=== PATIENT | female | born 1975 | race Caucasian/White ===

== ENCOUNTER 2016-06-12 07:44 | Inpatient (IN) | payer BC ==
[~2016-06-12] VITALS: Ht 154.9 cm; Wt 85.0 kg
[~2016-06-12 07:44] MED LIST: ACYC-65 PO; ALBU1AER9 INH; HYDR-5688 PO; LISI-791 PO; MELO7.5T5 PO; TRAM-10 PO
[2016-06-12] MEDS ORDERED: ONDANSETRON INJ 2 MG/ML 2 ML VIAL IV STA (08:01)
[2016-06-12] MEDS ORDERED: HYDROmorphone INJ 1 MG/ML SYR IV STA ×2 (08:01→10:20)
[2016-06-12] MEDS ORDERED: METF-384 PO (08:15)
[2016-06-12] MEDS ORDERED: ALBU18002 INH (08:15)
[2016-06-12] MEDS ORDERED: BUPR100T8 PO (08:15)
[2016-06-12 08:25] LABS: BASO % 0.4 %; BASO ABS # 0.06 K/uL (0-0.2); COMPLETE YES; EOS % 1.7 %; HEMATOCRIT 41.6 % (37-47); IG% 0.3 %; LYMPH % 11.9 %; LYMPH ABS # 1.61 K/uL (1.2-3.4); MEAN CELL VOLUME 86.8 fL (80-100); MEAN CORPUSCULAR HEMOGLOBIN 30.3 pg (25-34); MEAN CORPUSCULAR HGB CONC 34.9 g/dl (32-36); MEAN PLATELET VOLUME 9.4 fL (7.4-10.4); MONO % 5.4 %; NEUT % 80.3 %; PLATELET COUNT 303 K/uL (130-400); RED BLOOD COUNT 4.79 M/uL (4.2-5.4); WHITE BLOOD COUNT 13.58 K/uL (4.8-10.8)
[2016-06-12] MEDS ORDERED: LORAZEPAM 1 MG TAB SL STA (08:26)
[2016-06-12 08:48] LABS: BUN/CREATININE RATIO 11.1 (10-20); CALCIUM 8.7 mg/dl (8.5-10.1); CREATININE 0.9 mg/dl (0.60-1.20)
--- NOTE | 2016-06-12 10:09 | DIAGNOSTIC IMAGING REPORT ---
LUMBAR SPINE MRI HISTORY: Right leg numbness. TECHNIQUE: Multiplanar multisequence MRI of the lumbar spine was performed without the use of contrast. COMPARISON: None. FINDINGS: For the purpose of the report the L5-S1 disc space will be located on axial image 23 of 29. [employer] images demonstrate focal thickening at the fundus of the endometrium measuring up to 1.3 cm. This is considered top normal in thickness for premenopausal female. Moderate disc space. L5-S1 with mild endplate degenerative changes. There is paravertebral edema surrounding the L5-S1 level. There is no endplate erosion or suspicious marrow signal abnormality to suggest an infectious process. The conus terminates at the L1 level. The remaining disc spaces are preserved. No fracture or subluxation. Mild to moderate facet degenerative changes at L4-L5 and L5-S1. L1-L2: Tiny broad-based posterior disc bulge without significant central canal or neural foraminal narrowing. L2-L3: No significant central canal or neural foraminal narrowing. L3-L4: No significant central canal or neural foraminal narrowing. L4-L5: Small broad-based posterior disc bulge with a right foraminal annular tear. Mild bilateral neural foraminal narrowing due to the facet hypertrophy and disc bulge. No significant central canal narrowing. L5-S1: Bilateral [id number] neural foraminal narrowing. There is a broad-based posterior disc bulge. There is a 12 x 7 mm focal central disc protrusion which results in mild central canal narrowing. This abuts the bilateral transiting S1 nerve root. In addition, best seen on axial image 26 and sagittal image 7 there is a 1.9 x 1.5 x 1.2 cm soft tissue abnormality posterior to the right S1 vertebral body. This demonstrates signal characteristics similar to the distal material. Therefore, this favors a large sequestered fragment from the L5-S1 level with inferior subligamentous migration. This compresses the transiting right S2 nerve root. IMPRESSION: 1. There is a focal central disc protrusion which results in mild central canal narrowing. This abuts the bilateral transiting S1 nerve root. In addition, there is a 1.9 x 1.5 x 1.2 cm soft tissue abnormality posterior to the right S1 vertebral body. This demonstrates signal characteristics similar to the disc material. Therefore, this favors a large sequestered fragment from the L5-S1 level with inferior subligamentous migration. This compresses the transiting right S2 nerve root. An epidural hematoma or abscess could also have a similar appearance but are considered less likely given the signal characteristics. 2. Mild paravertebral edema at the L5-S1 level. No acute fracture or subluxation. 3. Small broad-based posterior disc bulge with a right foraminal annular tear at L4-L5. There is mild bilateral neural foraminal narrowing at this level. 4. [employer] images demonstrate top normal focal thickness of the fundus of the endometrium. Follow-up pelvic ultrasound in 6-8 weeks is recommended to ensure resolution Electronically signed by: Nazario Vaughan M.D. 06/12/2016 10:08 AM Dictated Date/Time: 06/12/2016 9:55 AM
[2016-06-12 10:56] LABS: C-REACTIVE PROTEIN 1.37 mg/dl (0-0.29)
[2016-06-12] MEDS ORDERED: MoRPHine SULFATE 4 MG/ML 1 ML CARP\\VIAL IV STA (11:45)
[2016-06-12] MEDS ORDERED: PROMETHAZINE HCL INJ 12.5 MG in SODIUM CHLORIDE 0.9% 50ML 50 ML IV PRN (12:15)
[2016-06-12] MEDS ORDERED: NALOXONE HCL 0.4 MG/1 ML VIAL/CARP IV PRN (12:15)
[2016-06-12] MEDS ORDERED: ACETAMINOPHEN 325 MG TAB PO PRN (12:15)
[2016-06-12] MEDS ORDERED: LORAZEPAM INJ 1 MG in SYRINGE 0.5 ML IV PRN (12:15)
[2016-06-12 12:26] VITALS: O2SAT 93; BMI 35.4
--- NOTE | 2016-06-12 13:19 | HISTORY & PHYSICAL EXAMINATION ---
DATE OF ADMISSION: 06/12/2016 HISTORY OF PRESENT ILLNESS: This patient is a 40-year-old female, who presents with one week history of increasing back and right leg pain. She reports numbness that began a week ago down the right leg. She has a longstanding history of back pain with occasional sciatica, this has been managed nonoperatively at [facility]. She has had procedures here as well. Multiple epidural steroid injections. A week ago symptoms increased prompting presentation to the ER due to poor pain control at home. She reports no wayne incontinence. She reports no fevers, constitutional complaints, chills or night sweats. No history of IV drug abuse. She states that the right leg is numb. She has no left leg numbness. She also reports the right side of her buttocks has been increasingly numb. She has no wayne incontinence of stool or urine as mentioned. She states that she does not have any left-sided perineal or sacral numbness. These symptoms have developed slowly over the past week. She denies weakness in the ankles or legs. PAST MEDICAL HISTORY: Hypertension, asthma, prediabetic. 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 She is , accompanied by her . She is a smoker. REVIEW OF SYSTEMS: Negative for incontinence, fevers, constitutional complaints, chest pain, history of coronary artery disease or bleeding diathesis. PHYSICAL EXAMINATION: The patient is obviously uncomfortable lying supine in bed. She has a positive straight leg raise on the right, negative on the left. She has normal strength in mini motor testing in both lower extremities, somewhat limited more proximally due to discomfort with straining. She has diminished sensation to light touch and a S1 distribution on the right, normal on the left lower extremity. She has diminished DTRs, no clonus. She has regular rate and rhythm. Palpable distal pulses. She is breathing comfortably. Lungs are clear. She has an MRI that was reviewed, demonstrates a large central disc protrusion with extruded fragment tracking distal to the disc space causing significant compression of the S1 and S2 nerve roots on the right side more than the left. This was contiguous with the disc space. She did have lab work done in the ED, which revealed minimally elevated ESR of 22. White count was 13.5. C-reactive protein is also minimally elevated. She has no fevers. ASSESSMENT AND PLAN: The patient has a progressive radiculopathy with some perineal paresthesias in the right. She has no wayne incontinence, but given the progression of her symptoms for pain control and desire for definitive treatment we are going to admit her to the hospital. I did discuss the imaging with Dr. Vaughan, he felt it was consistent with the disc herniation and given the absence of any constitutional complaints the history of prior disc herniation and the MR characteristics he felt very unlikely to be anything other than a sequestered disc fragment. I was in agreement; her clinical picture also indicates this. The minimal elevation of her lab work may simply be a stress reaction, it is essentially borderline normal. My plan is to admit her, place her on steroids and take her to the OR for discectomy and probable fusion tomorrow given the longstanding history of back pain and the advanced disc degeneration of L5-S1. She had had this previously, discussed in the past and considered surgery for a fusion previously at [facility], but was trying to put it off. At this point, given the progression of symptoms, she would like to proceed.
[2016-06-12] MEDS ORDERED: IV FLUIDS COMPLETED PRN (13:30)
[2016-06-12 13:50] VITALS: BP 132/91; PULSE 75; TEMP 36.9; O2SAT 92
[2016-06-12] MEDS: SODIUM CHLORIDE 0.9% 1000ML 1,000 ML IV SCH (14:19)
[2016-06-12] MEDS: ONDANSETRON INJ 2 MG/ML 2 ML VIAL IV PRN (14:27)
[2016-06-12] MEDS: LACTATED RINGER'S 1000ML 1,000 ML IV SCH (14:27)
[2016-06-12] MEDS: LORAZEPAM 1 MG TAB PO PRN (14:27)
--- NOTE | 2016-06-12 14:57 | EMERGENCY ROOM VISIT NOTE ---
History Report prepared by Delia: Gage Huggins Under the Supervision of: Dr. Aleksandar Hagan D.O. First contact with patient: 07:55 Chief Complaint: BACK PAIN Stated Complaint: SEVERE BACK PAIN, RIGHT LEG NUMBNESS History of Present Illness The patient is a 40 year old female who presents to the Emergency Room with complaints of worsening lower back pain for the past week. The patient additionally states that she has been having numbness in her entire right leg and her groin is starting to become numb. The patient states that she is going to be scheduled to have back surgery. She denies having any recent injections or recent traumas. Patient has had previous back issues notes that this has been worsening. She's been trying to put off surgery as she does not want to pay for. She denies any weakness in her leg. No fevers. No recent infections. No IV drug use. No history of cancer. Pt denies headache, change in vision, fevers, chest pain, shortness of breath, nausea, vomiting, diarrhea, pain with urination, and melena. Source of History: patient Onset: a week ago Position: back (lower) Timing: worsening Associated Symptoms: + numbness, No urinary symptoms Review of Systems Pt denies headache, change in vision, fevers, chest pain, shortness of breath, nausea, vomiting, diarrhea, pain with urination, and melena. Past Medical & Surgical Medical Problems: (1) AC PYELONEPHRITIS NOS (2) ANXIETY STATE NOS (3) ASTHMA, UNSPECIFIED (4) DEPRESSIVE DISORDER NEC (5) ESOPHAGEAL REFLUX (6) HNP (herniated nucleus pulposus) (7) HYPERTENSION NOS (8) OPIOID DEPENDENCE-UNSPEC (9) OVARIAN CYST NEC/NOS (10) PNEUMONIA, ORGANISM NOS Family History VT (myocardial infarction) Social History Smoking Status: Current Every Day Smoker Alcohol Use: none Marital Status: Housing Status: lives with significant other Occupation Status: employed Current/Historical Medications Scheduled Acyclovir (Zovirax), 400 MG PO BID PRN Bupropion (Wellbutrin Sr), 100 MG PO BID Lisinopril (Zestril), 10 MG PO DAILY Meloxicam (Mobic), 7.5 MG PO HS Metformin Hcl (Glucophage), 1,000 MG PO BID Tramadol (Ultram), 50 MG PO Q6HR Scheduled PRN Albuterol Sulfate (Proair Respiclick), 2 PUFFS INH Q4H PRN for Shortness of Breath Allergies Coded Allergies: No Known Allergies (Verified , 06/12/16) Physical Exam Vital Signs Date Time Temp Pulse Resp B/P Pulse Ox O2 Delivery O2 Flow Rate FiO2 06/12/16 10:15 82 18 148/93 93 Room Air 06/12/16 07:48 36.6 83 20 128/77 94 Room Air Physical Exam GENERAL: Standing at the bedside holding lower back in moderate distress EYE EXAM: normal conjunctiva OROPHARYNX: no exudate, no erythema, lips, buccal mucosa, and tongue normal and mucous membranes are moist NECK: supple, no nuchal rigidity, no adenopathy, non-tender LUNGS: Clear to auscultation. Normal chest wall mechanics HEART: no murmurs, S1 normal and S2 normal ABDOMEN: abdomen soft, non-tender, normo-active bowel sounds, no masses, no rebound or guarding. BACK: Acute reproducible tenderness over the right SI joint tracking through her gluteus SKIN: no rashes and no bruising UPPER EXTREMITIES: upper extremities are grossly normal. LOWER EXTREMITIES: Flexion and extension in hip, knee, ankles EHL 5/5 bilateral. Gross sensation intact. Able to walk on heels and toes. Patellar and Achilles reflex 2/4 NEURO EXAM: Normal sensorium Medical Decision & Procedures ER Provider Diagnostic Interpretation: MRI results have been interpreted by the radiologist and reviewed by me. LUMBAR SPINE MRI HISTORY: Right leg numbness. TECHNIQUE: Multiplanar multisequence MRI of the lumbar spine was performed without the use of contrast. COMPARISON: None. FINDINGS: For the purpose of the report the L5-S1 disc space will be located on axial image . [employer] images demonstrate focal thickening at the fundus of the endometrium measuring up to 1.3 cm. This is considered top normal in thickness for premenopausal female. Moderate disc space. L5-S1 with mild endplate degenerative changes. There is paravertebral edema surrounding the L5-S1 level. There is no endplate erosion or suspicious marrow signal abnormality to suggest an infectious process. The conus terminates at the L1 level. The remaining disc spaces are preserved. No fracture or subluxation. Mild to moderate facet degenerative changes at L4-L5 and L5-S1. L1-L2: Tiny broad-based posterior disc bulge without significant central canal or neural foraminal narrowing. L2-L3: No significant central canal or neural foraminal narrowing. L3-L4: No significant central canal or neural foraminal narrowing. L4-L5: Small broad-based posterior disc bulge with a right foraminal annular tear. Mild bilateral neural foraminal narrowing due to the facet hypertrophy and disc bulge. No significant central canal narrowing. L5-S1: Bilateral [id number] neural foraminal narrowing. There is a broad-based posterior disc bulge. There is a 12 x 7 mm focal central disc protrusion which results in mild central canal narrowing. This abuts the bilateral transiting S1 nerve root. In addition, best seen on axial image 26 and sagittal image 7 there is a 1.9 x 1.5 x 1.2 cm soft tissue abnormality posterior to the right S1 vertebral body. This demonstrates signal characteristics similar to the distal material. Therefore, this favors a large sequestered fragment from the L5-S1 level with inferior subligamentous migration. This compresses the transiting right S2 nerve root. IMPRESSION: 1. There is a focal central disc protrusion which results in mild central canal narrowing. This abuts the bilateral transiting S1 nerve root. In addition, there is a 1.9 x 1.5 x 1.2 cm soft tissue abnormality posterior to the right S1 vertebral body. This demonstrates signal characteristics similar to the disc material. Therefore, this favors a large sequestered fragment from the L5-S1 level with inferior subligamentous migration. This compresses the transiting right S2 nerve root. An epidural hematoma or abscess could also have a similar appearance but are considered less likely given the signal characteristics. 2. Mild paravertebral edema at the L5-S1 level. No acute fracture or subluxation. 3. Small broad-based posterior disc bulge with a right foraminal annular tear at L4-L5. There is mild bilateral neural foraminal narrowing at this level. 4. [employer] images demonstrate top normal focal thickness of the fundus of the endometrium. Follow-up pelvic ultrasound in 6-8 weeks is recommended to ensure resolution Electronically signed by: Nazario Vaughan M.D. 06/12/2016 10:08 AM Dictated Date/Time: 06/12/2016 9:55 AM Laboratory Results 06/12/16 08:18 Red Blood Count 4.79, Mean Corpuscular Volume 86.8, Mean Corpuscular Hemoglobin 30.3, Mean Corpuscular Hemoglobin Concent 34.9, Mean Platelet Volume 9.4, Neutrophils (%) (Auto) 80.3, Lymphocytes (%) (Auto) 11.9, Monocytes (%) (Auto) 5.4, Eosinophils (%) (Auto) 1.7, Basophils (%) (Auto) 0.4, Neutrophils # (Auto) 10.90, Lymphocytes # (Auto) 1.61, Monocytes # (Auto) 0.74, Eosinophils # (Auto) 0.23, Basophils # (Auto) 0.06 06/12/16 08:18 Test 06/12/16 08:18 White Blood Count 13.58 K/uL (4.8-10.8) Red Blood Count 4.79 M/uL (4.2-5.4) Hemoglobin 14.5 g/dL (12.0-16.0) Hematocrit 41.6 % (37-47) Mean Corpuscular Volume 86.8 fL (80-100) Mean Corpuscular Hemoglobin 30.3 pg (25-34) Mean Corpuscular Hemoglobin Concent 34.9 g/dl (32-36) Platelet Count 303 K/uL (130-400) Mean Platelet Volume 9.4 fL (7.4-10.4) Neutrophils (%) (Auto) 80.3 % Lymphocytes (%) (Auto) 11.9 % Monocytes (%) (Auto) 5.4 % Eosinophils (%) (Auto) 1.7 % Basophils (%) (Auto) 0.4 % Neutrophils # (Auto) 10.90 K/uL (1.4-6.5) Lymphocytes # (Auto) 1.61 K/uL (1.2-3.4) Monocytes # (Auto) 0.74 K/uL (0.11-0.59) Eosinophils # (Auto) 0.23 K/uL (0-0.5) Basophils # (Auto) 0.06 K/uL (0-0.2) RDW Standard Deviation 47.2 fL (36.4-46.3) RDW Coefficient of Variation 14.8 % (11.5-14.5) Immature Granulocyte % (Auto) 0.3 % Immature Granulocyte # (Auto) 0.04 K/uL (0.00-0.02) Erythrocyte Sedimentation Rate 22 mm/hr (0-21) Anion Gap 9.0 mmol/L (3-11) Est Creatinine Clear Calc Drug Dose 81.4 ml/min Estimated GFR () 92.0 Estimated GFR (Non- 79.4 BUN/Creatinine Ratio 11.1 (10-20) Calcium Level 8.7 mg/dl (8.5-10.1) C-Reactive Protein 1.37 mg/dl (0-0.29) Laboratory results per my review. Medications Administered Medications (Trade) Dose Ordered Sig/Bam Route Start Time Stop Time Status Last Admin Dose Admin Hydromorphone HCl (Dilaudid Inj) 1 mg NOW STAT IV 06/12/16 08:01 06/12/16 08:04 DC 06/12/16 08:20 1 MG Ondansetron HCl (Zofran Inj) 4 mg NOW STAT IV 06/12/16 08:01 06/12/16 08:04 DC 06/12/16 08:20 4 MG Hydromorphone HCl (Dilaudid Inj) 1 mg NOW STAT IV 06/12/16 10:20 06/12/16 10:21 DC 06/12/16 10:29 1 MG Morphine Sulfate 4 mg 4 mg NOW STAT IV 06/12/16 11:45 06/12/16 11:46 DC 06/12/16 12:08 4 MG Lactated Ringer's (Lr 1000ml) 1,000 ml @ 75 mls/hr [id number] IV 06/12/16 12:09 07/12/16 12:08 06/12/16 14:27 75 MLS/HR ED Course ED COURSE: Vital signs were reviewed and showed normal vitals The patients medical record was reviewed The above diagnostic studies were performed and reviewed. ED treatments and interventions as stated above. 0755: The patient was evaluated in room B2. A complete history and physical examination was performed. 0801: Zofran Inj 4mg IV, Dilaudid Inj 1mg IV 0826: Ativan Tav 1mg SL 1020: Dilaudid Inj 1mg IV 1105: I discussed the patient's case with Dr. Lawson, and he says that he is going to review and discuss the images 1118: I discussed the patient's case with Dr. Lawson. He is going to evaluate the patient for further treatment. 1145: Morphine Sulfate 2mg IV 1150: Upon reevaluation, the patient is resting.I discussed my findings with the patient and she understands and agrees with the treatment plan. Based on the patients age, coexisting illnesses, exam and lab findings the decision to treat as an inpatient was made. The patient remained stable while under my care. The patient will be evaluated for further management. Medical Decision Differential diagnoses includes but is not limited to lumbar radiculopathy, muscle strain, facture, cauda equina, mass, and disc herniation. Patient is a 40-year-old female who presents the ER for severe lower back pain with numbness radiating down her right leg. She has had this before but notes that this is worse. She is paresthesias going into her groin. No fevers. No IV drug use. No history cancer. No recent trauma. On exam flexion extension in hip knee ankle and EHL is intact. Gross sensation is diminished on the right. Patellar and Achilles reflexes are 2 out of 4. Patient was given 3 doses of IV the lawn it. MRI was obtained which showed a large disc herniation. There was a question of whether she had a epidural abscess. Labs were previously obtained and showed a leukocytosis of 13,000. Her sed and CRP were normal. Vitals were stable. No fever. Patient has no risk for this. I rediscussed this with with his spine and she is evaluated at bedside. She initially declined admission but eventually was convinced. She will likely go to the OR tomorrow for her disc herniation as per orthopedics this is extremely unlikely that there is any abscess present but rather this is disc fragments. Consults Time Called: 1102 Consulting Physician: Dr. Lawson Returned Call: [phone] I discussed the patient's case with Dr. Lawson, and he says that he is going to discuss the images Additional Consults: Time Called: 1116 Consulted Physician: Dr. Lawson Returned Call: [phone] Additional Comments: I discussed the patient's case with Dr. Lawson. He is going to evaluate the patient for further treatment. Impression Primary Impression: Lumbar disc herniation Additional Impression: Paresthesia Scribe Attestation The scribe's documentation has been prepared under my direction and personally reviewed by me in its entirety. I confirm that the note above accurately reflects all work, treatment, procedures, and medical decision making performed by me. Departure Information Dispostion Being Evaluated By Hospitalist Referrals Oni Gillette III, M.D. (PCP) Patient Instructions My [facility] Problem Qualifiers
[2016-06-12 14:59] VITALS: BP 142/92; PULSE 76; TEMP 36.8; O2SAT 93
[2016-06-12] MEDS: DEXAMETHASONE INJ 8 MG in SYRINGE 0 ML IV SCH ×2 (15:11→21:55)
[2016-06-12] MEDS ORDERED: GLUCOSE 40% GEL 15 GM TUBE PO PRN (15:15)
[2016-06-12] MEDS ORDERED: DEXTROSE 50% 50 ML SYR IV PRN (15:15)
[2016-06-12] MEDS ORDERED: GLUCOSE 10 TABS/TUBE PO PRN (15:15)
[2016-06-12] MEDS ORDERED: GLUCAGON FOR INJ 1 MG VIAL SQ PRN (15:15)
[2016-06-12] MEDS ORDERED: ALBUTEROL 0.5% NEB SOLN 2.5 MG/0.5 ML VIAL INH PRN (15:15)
[2016-06-12] MEDS ORDERED: HydrALAZINE HCL 20 MG/ML VIAL IV. PRN (15:30)
--- NOTE | 2016-06-12 15:55 | Medical Consult ---
Consultation Date of Consultation: Jun 12, 2016. Attending Physician: Oni Gillette III, M.D. Reason for Consultation: Pre-operative evaluation and medical management History of Present Illness 40 yo female with history of HTN, asthma and borderline DM, presented to the ED with severe lower back pain and right leg pain and numbness. MRI lumbar spine revealed disc herniation at the L5-S1 level. She has been dealing with lower back pain for some time, has followed with [facility] [address] spine surgeons and she has had numerous steroid injections. Surgery was recommended but she wanted to wait. Now with severe back and leg pain she would like to have surgery, she was admitted by Dr. Lawson and he plans to take to the OR tomorrow after pain control and steroids started today. Currently she is resting in bed with moderate pain, waiting for Morphine IV. She reports that her medical issues are stable and she does follow regularly with her PCP. She carries a diagnosis of HTN and is prescribed lisinopril 10mg daily but she admits that she does not take the medication. She also has a diagnosis of asthma but only uses ProAir rescue inhaler as needed, no maintenance medications. Lastly, she has been told that she has borderline diabetes type II. She was treated with Metformin 500mg twice a day and was then increased to 1000mg twice a day. She cannot recall if she has been told a recent HbA1c level, just reports that she used to have elevated fasting blood sugar but the Metformin helped correct the issue. She insists that she does not have diabetes and her main concern is that she is ordered a diabetic diet and she wants a regular diet. She has had surgery before (ankle and wisdom teeth) and never had issues with anesthesia. She confirms that she has no known history of SC, CVA, CKD, arrhythmia or valve disease. Other than her back pain, she has no medical complaints. 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) Allergies Coded Allergies: No Known Allergies (Verified , 06/12/16) Home Medications Acyclovir 400mg BID PRN ProAir 2 puffs inhaled q4H PRN Wellbutrin 100mg BID Lisinopril 10mg daily (does not take) Mobic 7.5mg qHS Metformin 1000mg BID Ultram 50mg q6 PRN Current Inpatient Medications Current Inpatient Medications Medications (Trade) Dose Ordered Sig/Bam Route Start Time Stop Time Status Last Admin Dose Admin Bupropion HCl (Wellbutrin-Sr Tab) 100 mg BID PO 06/12/16 21:00 07/12/16 20:59 Lisinopril 10 mg 10 mg DAILY PO 06/13/16 09:00 07/13/16 08:59 Lactated Ringer's (Lr 1000ml) 1,000 ml @ 75 mls/hr [id number] IV 06/12/16 12:09 07/12/16 12:08 06/12/16 14:27 75 MLS/HR Acetaminophen (Tylenol Tab) 650 mg Q6H PRN PO 06/12/16 12:15 07/12/16 12:14 Docusate Sodium 100 mg 100 mg BID PO 06/12/16 21:00 07/12/16 20:59 Dexamethasone Sodium Phosphate 8 mg/Syringe 2 ml @ 1 mls/min Q8 IV 06/12/16 15:00 06/13/16 06:01 06/12/16 15:11 1 MLS/MIN Promethazine HCl/ Sodium Chloride (Phenergan Inj/ Nss 50ml) 50.5 ml @ 202 mls/hr Q6H PRN IV 06/12/16 12:15 07/12/16 12:14 Ondansetron HCl (Zofran Inj) 4 mg Q6H PRN IV 06/12/16 12:15 07/12/16 12:14 06/12/16 14:27 4 MG Lorazepam 1 mg 1 mg Q6H PRN PO 06/12/16 12:15 07/12/16 12:14 06/12/16 14:27 1 MG Lorazepam/Syringe (Ativan Inj/ Syringe) 1 ml @ 1 mls/min Q6H PRN IV 06/12/16 12:15 07/12/16 12:14 Oxycodone/ Acetaminophen (Percocet 5-325mg Tab) Moderate to Severe lobito... Q4H PRN PO 06/12/16 12:15 06/26/16 12:14 Naloxone HCl (Narcan Inj) 0.1 mg Q5M PRN IV 06/12/16 12:15 07/12/16 12:14 Morphine Sulfate 50 mg 50 mg PRN PRN IV 06/12/16 12:15 06/26/16 12:14 Sodium Chloride (Nss 1000ml) 1,000 ml @ 15 mls/hr Q24H IV 06/12/16 12:09 07/12/16 12:08 Miscellaneous 1 ea 1 ea PRN PRN N/A 06/12/16 13:30 06/12/17 13:29 Cefazolin Sodium (Ancef 2000mg/60 ml D5W) 60 ml @ 100 mls/hr PREOP IV 06/13/16 06:00 06/13/16 18:00 Insulin Aspart (novoLOG ASPART) SLIDING SCALE G... ACHS SC 06/12/16 17:15 07/12/16 17:14 Insulin Glargine (Lantus Solostar Pen) 15 unit QPM SC 06/12/16 21:00 07/12/16 20:59 Glucose (Glucose 40% Gel) 15-30 GRAMS 15 GRAMS... UD PRN PO 06/12/16 15:15 07/12/16 15:14 Glucose (Glucose Chew Tab) 4-8 Tablets 4 Tabl... UD PRN PO 06/12/16 15:15 07/12/16 15:14 Dextrose (Dextrose 50% 50ML Syringe) 25-50ML OF 50% DW IV FOR... UD PRN IV 06/12/16 15:15 07/12/16 15:14 Glucagon (Glucagon Inj) 1 mg UD PRN SQ 06/12/16 15:15 07/12/16 15:14 Albuterol Sulfate (Ventolin 0.5% 2.5MG/0.5ML Neb) 2.5 mg Q6R PRN INH 06/12/16 15:15 07/12/16 15:14 Review of Systems Constitutional: No chills, No fatigue, No fever, No problem reported, No sweats , No weakness, No weight loss Eyes: No diplopia, No discharge, No eye pain, No problem reported, No redness, No worsening of vision ENT: No dental problems, No hearing loss, No nasal symptoms, No problem reported, No sore throat, No tinnitus, No trouble swallowing, No unusual epistaxis Respiratory: No cough, No dyspnea at rest, No dyspnea on exertion, No hemoptysis, No problem reported, No shortness of breath, No sputum, No wheezing Cardiovascular: No PND, No chest pain, No claudication, No edema, No orthopnea , No palpitations, No problem reported Abdomen: No GI bleeding, No constipation, No diarrhea, No nausea, No pain, No problem reported, No vomiting Musculoskeletal: + joint pain (low back and right leg, numbness), No calf pain , No muscle pain, No problem reported, No swelling Genitourinary - Female: No dysuria, No hematuria, No urinary frequency, No urinary incontinence, No urinary retention, No urinary urgency Neurologic: + numbness/tingling (right leg and right buttock), No balance problems, No memory loss, No paralysis, No problem reported, No vertigo, No weakness Psychiatric: No anhedonism, No anxiety, No depression symptoms, No insomnia, No problem reported, No substance abuse Endocrine: No excessive thirst, No excessive urination, No fatigue, No problem reported Hematologic / Lymphatic: No abnormal bleeding/bruising, No clotting problems, No night sweats, No problem reported, No swollen lymph nodes Integumentary: No bleeding, No color change, No itch, No new/changing skin lesions, No problem reported, No rash Allergic / Immunologic: No environmental allergies, No food allergies, No frequent infections, No hives, No pet sensitivities, No poor healing, No problem reported, No prolonged convalescence, No seasonal allergies Physical Exam Date Time Temp Pulse Resp B/P Pulse Ox O2 Delivery O2 Flow Rate FiO2 06/12/16 14:59 36.8 76 18 142/92 93 Room Air 06/12/16 13:50 36.9 75 18 132/91 92 Room Air 06/12/16 13:39 36.6 83 18 124/97 93 06/12/16 13:32 83 18 124/97 93 06/12/16 12:37 75 18 134/84 98 Room Air 06/12/16 12:26 93 Room Air 06/12/16 10:15 82 18 148/93 93 Room Air 06/12/16 07:48 36.6 83 20 128/77 94 Room Air General Appearance: WD/WN, no apparent distress Head: normocephalic, atraumatic Eyes: normal inspection, EOMI, sclerae normal ENT: normal ENT inspection, hearing grossly normal, pharynx normal Neck: supple, no adenopathy, no JVD, trachea midline Respiratory/Chest: chest non-tender, lungs clear, normal breath sounds, no respiratory distress, no accessory muscle use Cardiovascular: regular rate, rhythm, no edema, no gallop, no JVD, no murmur, normal peripheral pulses Abdomen/GI: normal bowel sounds, non tender, soft, no organomegaly Back: normal inspection, no CVA tenderness, no muscle spasm, + decreased range of motion (lumbar spine due to pain) Extremities/Musculoskelatal: normal inspection, no calf tenderness, normal capillary refill, no pedal edema, normal range of motion, non-tender, pelvis stable Neurologic/Psych: 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 There is a focal central disc protrusion which results in mild central canal narrowing. This abuts the bilateral transiting S1 nerve root. In addition, there is a 1.9 x 1.5 x 1.2 cm soft tissue abnormality posterior to the right S1 vertebral body. This demonstrates signal characteristics similar to the disc material. Therefore, this favors a large sequestered fragment from the L5-S1 level with inferior subligamentous migration. This compresses the transiting right S2 nerve root. An epidural hematoma or abscess could also have a similar appearance but are considered less likely given the signal characteristics. 2. Mild paravertebral edema at the L5-S1 level. No acute fracture or subluxation. 3. Small broad-based posterior disc bulge with a right foraminal annular tear at L4-L5. There is mild bilateral neural foraminal narrowing at this level. 4. Drug Enforcement Administration Agent images demonstrate top normal focal thickness of the fundus of the endometrium. Follow-up pelvic ultrasound in 6-8 weeks is recommended to ensure resolution Last 24 Hours Test 06/12/16 08:18 White Blood Count 13.58 K/uL Red Blood Count 4.79 M/uL Hemoglobin 14.5 g/dL Hematocrit 41.6 % Mean Corpuscular Volume 86.8 fL Mean Corpuscular Hemoglobin 30.3 pg Mean Corpuscular Hemoglobin Concent 34.9 g/dl Platelet Count 303 K/uL Mean Platelet Volume 9.4 fL Neutrophils (%) (Auto) 80.3 % Lymphocytes (%) (Auto) 11.9 % Monocytes (%) (Auto) 5.4 % Eosinophils (%) (Auto) 1.7 % Basophils (%) (Auto) 0.4 % Neutrophils # (Auto) 10.90 K/uL Lymphocytes # (Auto) 1.61 K/uL Monocytes # (Auto) 0.74 K/uL Eosinophils # (Auto) 0.23 K/uL Basophils # (Auto) 0.06 K/uL RDW Standard Deviation 47.2 fL RDW Coefficient of Variation 14.8 % Immature Granulocyte % (Auto) 0.3 % Immature Granulocyte # (Auto) 0.04 K/uL Erythrocyte Sedimentation Rate 22 mm/hr Sodium Level 136 mmol/L Potassium Level 4.0 mmol/L Chloride Level 103 mmol/L Carbon Dioxide Level 24 mmol/L Anion Gap 9.0 mmol/L Blood Urea Nitrogen 10 mg/dl Creatinine 0.90 mg/dl Est Creatinine Clear Calc Drug Dose 81.4 ml/min Estimated GFR () 92.0 Estimated GFR (Non- 79.4 BUN/Creatinine Ratio 11.1 Random Glucose 122 mg/dl Calcium Level 8.7 mg/dl C-Reactive Protein 1.37 mg/dl Assessment & Plan 40 yo female with acute disc herniation at L5-S1 level causing radiculopathy, numbness in right leg, admitted by orthopedic surgery - Lumbar disc herniation, for surgical repair tomorrow: medically optimized, no active medical issues at this time no history of CAD, CVA, CKD, arrhythmias or valve disease, no issues with anesthesia in the past chest x-ray and EKG ordered, will f/u on results, lab work is normal with exception of leukocytosis which is likely stress induced - Borderline DM (according to patient) but may in fact have DM type II: will check HbA1c in the morning to determine her true diagnosis at this time hold Metformin while hospitalized, utilize Novolog coverage will use Lantus 15 units qPM because of Decadron 8mg q8 starting at 1500 true dose of Lantus based on steroid use and her weight would be 20 units BID but patient is insulin naive and will be NPO after midnight - Hypertension: BP is elevated currently with systolic in 140's, patient admits that she does not use Lisinopril at home monitor BP while here, use Hydralazine if > 170/110 - Asthma: lungs clear, no wheezing, Albuterol nebulizers PRN - Depression: continue Wellbutrin - DVT prophylaxis: per orthopedics Additional Copies To Oni Gillette III, M.D.
[2016-06-12] MEDS: MoRPHine SULFATE 1 MG/ML 50 ML PCA CASS IV PRN ×2 (15:58→23:07)
--- NOTE | 2016-06-12 17:13 | DIAGNOSTIC IMAGING REPORT ---
CHEST 2 VIEWS ROUTINE CLINICAL HISTORY: preop preoperative evaluation COMPARISON STUDY: 05/01/2012 FINDINGS: The bones soft tissues and hemidiaphragms are normal. The cardiomediastinal silhouette is normal. The lungs are clear. The pulmonary vasculature is normal. IMPRESSION: Negative chest. Electronically signed by: Joselo Nettles M.D. 06/12/2016 5:11 PM Dictated Date/Time: 06/12/2016 5:11 PM
[2016-06-12] MEDS: INSULIN ASPART 100 UNITS/ML 3 ML PEN SC SCH ×2 (18:48→21:54)
[2016-06-12] MEDS ORDERED: INSULIN GLARGINE SOLOSTAR 100 UNITS/ML 3 ML PEN SC SCH (21:00)
[2016-06-12] MEDS: BuPROPion SR 100 MG TABCR PO SCH (21:55)
[2016-06-12] MEDS: DOCUSATE SODIUM 100 MG CAP PO SCH (21:55)
[2016-06-12] MEDS ORDERED: NURSING DECISION MEDICATION ORDER SCH (23:15)
[2016-06-12 23:28] VITALS: BP 126/83; PULSE 86; TEMP 37; O2SAT 90
[2016-06-13] VITALS (14 sets, daily range): BP systolic 96–148; BP diastolic 61–82; PULSE 73–83; TEMP 36.7–37.2; O2SAT 84–98; Ht 154.9 cm; Wt 85.0 kg
[2016-06-13] MEDS: LACTATED RINGER'S 1000ML 1,000 ML IV SCH ×2 (00:08→15:45)
[2016-06-13] MEDS: ONDANSETRON INJ 2 MG/ML 2 ML VIAL IV PRN (00:08)
[2016-06-13] MEDS: INSULIN ASPART 100 UNITS/ML 3 ML PEN SC SCH ×5 (05:57→21:00)
[2016-06-13] MEDS: DEXAMETHASONE INJ 8 MG in SYRINGE 0 ML IV SCH (05:57)
[2016-06-13] MEDS ORDERED: CEFAZOLIN 2000 MG/60 ML D5W IV SCH (06:00)
[2016-06-13] MEDS ORDERED: CEFAZOLIN IV 2,000 MG in DEXTROSE 5% 50ML 50 ML IV SCH (06:00)
[2016-06-13] MEDS: MoRPHine SULFATE 1 MG/ML 50 ML PCA CASS IV PRN ×4 (07:05→22:51)
[2016-06-13] MEDS: BuPROPion SR 100 MG TABCR PO SCH ×2 (07:37→20:44)
[2016-06-13] MEDS: LISINOPRIL 10 MG TAB PO SCH (07:37)
[2016-06-13] MEDS: DOCUSATE SODIUM 100 MG CAP PO SCH ×2 (07:37→20:45)
--- NOTE | 2016-06-13 07:50 | Progress Note ---
Progress Note [facility] hospitalist service call me that pt's pcp is [place] gaitan, so , Dr. Neeraj Cunningham will take over to see the patient as consult to day
[2016-06-13 08:58] LABS: PREG INTERNAL NEGATIVE QC NEG CLEAR BACKGROUND; PREG INTERNAL POSITIVE QC POS CONTROL LINE
[2016-06-13 09:13] LABS: ESTIMATED AVERAGE GLUCOSE 105 mg/dl; HA1C FLAG Normal (Normal)
[2016-06-13] MEDS ORDERED: FENTANYL CITRATE INJ 50 MCG/1 ML 2 ML VIAL ONE ×2 (10:31)
[2016-06-13] MEDS ORDERED: MIDAZOLAM HCL 1 MG/ML 2ML VIAL ONE (10:31)
--- NOTE | 2016-06-13 10:32 | Progress Note ---
Medicine Progress Note Date & Time of Visit: Jun 13, 2016 at 10:21. Subjective Patient seen and examined. Anxious about having surgery today. Denies chest pain or SOB. Objective Last 8 Hrs Date Time Temp Pulse Resp B/P Pulse Ox O2 Delivery O2 Flow Rate FiO2 06/13/16 07:30 Nasal Cannula 3.0 06/13/16 07:28 36.8 80 18 148/82 93 3.0 06/13/16 03:55 36.9 82 14 124/77 94 Room Air Physical Exam: General-awake; alert; NAD Eyes-EOMI; no scleral icterus Neck-no stridor; trachea midline Lungs-CTA bilaterally; no wheezes/crackles Heart-RRR; no m/r/g Abdomen-soft; NTND; nBS Extremities-no c/c/e; no deformity Neuro-no gross focal deficits Laboratory Results: Last 24 Hours Test 06/12/16 17:39 06/12/16 20:38 06/12/16 23:34 06/13/16 00:00 Bedside Glucose 174 mg/dl 116 mg/dl 134 mg/dl Urine Test NEG Test 06/13/16 05:43 06/13/16 06:40 Bedside Glucose 119 mg/dl Estimated Average Glucose 105 mg/dl Hemoglobin A1c 5.3 % Assessment & Plan 40 yo female with acute disc herniation at L5-S1 level causing radiculopathy, numbness in right leg, admitted by orthopedic surgery. Lumbar disc herniation - admitted to Orthopedics - plan for surgical intervention today - EKG with NSR and unchanged from previous and CXR unremarkable - no history of CAD, CVA, CKD, arrhythmias or valve disease, no issues with anesthesia in the past - no further work up required prior to proceeding with surgery - patient is low risk for intermediate risk procedure - pain control as per Ortho Will controlled type 2 DM - A1c 5.3 - hold metformin - SSI while inpatient Hypertension - continue lisinopril Mild intermittent Asthma - no active issues - continue albuterol PRN Depression - continue Wellbutrin DVT prophylaxis: per orthopedics Patient with one low oxygen saturation noted and was started on supplemental oxygen. Patient with gel nail cymro and so this likely was not an accurate reading. Patient asymptomatic and lung exam and CXR unremarkable. Do not suspect that patient is truly hypoxic. Current Inpatient Medications: Current Inpatient Medications Medications (Trade) Dose Ordered Sig/Bam Route Start Time Stop Time Status Last Admin Dose Admin Bupropion HCl (Wellbutrin-Sr Tab) 100 mg BID PO 06/12/16 21:00 07/12/16 20:59 06/13/16 07:37 100 MG Lisinopril 10 mg 10 mg DAILY PO 06/13/16 09:00 07/13/16 08:59 06/13/16 07:37 10 MG Lactated Ringer's (Lr 1000ml) 1,000 ml @ 75 mls/hr [id number] IV 06/12/16 12:09 07/12/16 12:08 06/13/16 00:08 75 MLS/HR Acetaminophen (Tylenol Tab) 650 mg Q6H PRN PO 06/12/16 12:15 07/12/16 12:14 Docusate Sodium 100 mg 100 mg BID PO 06/12/16 21:00 07/12/16 20:59 06/13/16 07:37 100 MG Promethazine HCl/ Sodium Chloride (Phenergan Inj/ Nss 50ml) 50.5 ml @ 202 mls/hr Q6H PRN IV 06/12/16 12:15 07/12/16 12:14 Ondansetron HCl (Zofran Inj) 4 mg Q6H PRN IV 06/12/16 12:15 07/12/16 12:14 06/13/16 00:08 4 MG Lorazepam 1 mg 1 mg Q6H PRN PO 06/12/16 12:15 07/12/16 12:14 06/12/16 14:27 1 MG Lorazepam/Syringe (Ativan Inj/ Syringe) 1 ml @ 1 mls/min Q6H PRN IV 06/12/16 12:15 07/12/16 12:14 Oxycodone/ Acetaminophen (Percocet 5-325mg Tab) Moderate to Severe lobito... Q4H PRN PO 06/12/16 12:15 06/26/16 12:14 Naloxone HCl (Narcan Inj) 0.1 mg Q5M PRN IV 06/12/16 12:15 07/12/16 12:14 Morphine Sulfate 50 mg 50 mg PRN PRN IV 06/12/16 12:15 06/26/16 12:14 06/13/16 07:05 50 MG Sodium Chloride (Nss 1000ml) 1,000 ml @ 15 mls/hr Q24H IV 06/12/16 12:09 07/12/16 12:08 Miscellaneous 1 ea 1 ea PRN PRN N/A 06/12/16 13:30 06/12/17 13:29 Cefazolin Sodium (Ancef 2000mg/60 ml D5W) 60 ml @ 100 mls/hr PREOP IV 06/13/16 06:00 06/13/16 18:00 Glucose (Glucose 40% Gel) 15-30 GRAMS 15 GRAMS... UD PRN PO 06/12/16 15:15 07/12/16 15:14 Glucose (Glucose Chew Tab) 4-8 Tablets 4 Tabl... UD PRN PO 06/12/16 15:15 07/12/16 15:14 Dextrose (Dextrose 50% 50ML Syringe) 25-50ML OF 50% DW IV FOR... UD PRN IV 06/12/16 15:15 07/12/16 15:14 Glucagon (Glucagon Inj) 1 mg UD PRN SQ 06/12/16 15:15 07/12/16 15:14 Albuterol Sulfate (Ventolin 0.5% 2.5MG/0.5ML Neb) 2.5 mg Q6R PRN INH 06/12/16 15:15 07/12/16 15:14 06/13/16 00:29 2.5 MG Hydralazine HCl (HydrALAZINE INJ) 10 mg Q6 PRN IV. 06/12/16 15:30 07/12/16 15:29 Insulin Aspart (novoLOG ASPART) SLIDING SCALE G... Q6 SC 06/13/16 00:00 07/13/16 00:00
[2016-06-13] MEDS ORDERED: ATROPINE SULFATE 0.1 MG/ML 5ML SYR IV PRN (10:45)
[2016-06-13] MEDS ORDERED: ONDANSETRON INJ 2 MG/ML 2 ML VIAL IV PRN ×2 (10:45→14:30)
[2016-06-13] MEDS ORDERED: EpHEDrine SULFATE INJ 50 MG/ML AMP IV PRN (10:45)
[2016-06-13] MEDS ORDERED: HYDROmorphone INJ 1 MG/ML SYR IV PRN (10:45)
[2016-06-13] MEDS ORDERED: SCOPOLAMINE 1.5 MG TDSY TD ONE (11:58)
--- NOTE | 2016-06-13 12:15 | History & Physical Bridge Note ---
H&P Re-Evaluation Bridge Note: I have examined the patient, reviewed the History & Physical and in the interval since the performance of the History & Physical I have noted the following changes of clinical significance: No changes noted
[2016-06-13] MEDS ORDERED: GLYCOPYRROLATE INJ 0.2 MG/ML VIAL ONE (12:48)
[2016-06-13] MEDS ORDERED: NEOSTIGMINE METHYLSULFATE 5 MG/5 ML SYR ONE (12:48)
[2016-06-13] MEDS ORDERED: LARYING-O-JET KIT (LTA) EXT ONE ×2 (12:48)
[2016-06-13] MEDS ORDERED: DEXAMETHASONE SOD INJ 4 MG/ML VIAL ONE (12:48)
[2016-06-13] MEDS ORDERED: PROPOFOL IV EMULSION 10 MG/ML 20 ML VIAL IV ONE (12:48)
[2016-06-13] MEDS ORDERED: ROCURONIUM BROMIDE 10 MG/ML 5 ML VIAL ONE (12:48)
[2016-06-13] MEDS ORDERED: ONDANSETRON INJ 2 MG/ML 2 ML VIAL ONE (12:48)
[2016-06-13] MEDS ORDERED: LIDOCAINE HCL 2% 2 ML VIAL (20MG/ML) ONE (12:48)
[2016-06-13] MEDS ORDERED: HYDROmorphone INJ 2 MG/ML SYR/VIAL ONE (12:50)
[2016-06-13] MEDS ORDERED: PHENYLEPHRINE 100MCG/ML 5ML SYR ONE (13:07)
[2016-06-13] MEDS ORDERED: THROMBIN 5000 UNITS KIT TOP ONE (13:17)
[2016-06-13] MEDS ORDERED: BACITRACIN 50000 UNIT VIAL IR ONE (13:17)
[2016-06-13] MEDS ORDERED: THROMBIN FOR SOLN 20000 UNIT KIT TOP ONE (13:17)
[2016-06-13] MEDS ORDERED: BUPIVACAINE/EPINEPHRINE 0.5% MPF 1:200,000 30 ML VIAL INJ ONE (13:17)
[2016-06-13] MEDS ORDERED: FLOSEAL HEMOSTATIC MATRIX 10ML TOP ONE (14:01)
--- NOTE | 2016-06-13 14:23 | [facility] Post Operative Brief Note ---
Immediate Operative Summary Operative Date Jun 13, 2016. Pre-Operative Diagnosis Advanced disc degeneration of L5-S1 Post-Operative Diagnosis Advanced disc degeneration of L5-S1 Procedure(s) Performed L5-S1 Discectomy Decompression Posterior Fusion, Interbody Fusion, Arteriocyte Surgeon Dr. Lawson Medical Sonographer Surgeon(s) 0 Estimated Blood Loss 170ML Findings dict Specimens none
[2016-06-13] MEDS ORDERED: LORAZEPAM 0.5 MG TAB PO PRN (14:30)
[2016-06-13] MEDS ORDERED: BISACODYL 10 MG SUPP PR PRN (14:30)
[2016-06-13] MEDS ORDERED: MAGNESIUM HYDROXIDE SUSP 30 ML UDC PO PRN (14:30)
[2016-06-13] MEDS ORDERED: ACETAMINOPHEN IV 100 ML IV PRN (14:30)
[2016-06-13] MEDS ORDERED: METOCLOPRAMIDE HCL INJ 5 MG/ML 2 ML VIAL IV PRN (14:30)
[2016-06-13] MEDS ORDERED: PROMETHAZINE HCL INJ 12.5 MG in SODIUM CHLORIDE 0.9% 50ML 50 ML IV PRN (14:30)
[2016-06-13] MEDS ORDERED: hydrOXYzine HCL 25 MG TAB PO PRN (14:30)
[2016-06-13] MEDS ORDERED: ALUMINUM/MAGNESIUM SUSP 30 ML UDC PO PRN (14:30)
[2016-06-13] MEDS ORDERED: SOD PHOSPHATE/SOD BIPHOSPHATE ENEMA 132 ML BTL PR PRN (14:30)
[2016-06-13] MEDS ORDERED: LORAZEPAM INJ 0.5 MG in SYRINGE 0 ML IV PRN (14:30)
--- NOTE | 2016-06-13 14:35 | DIAGNOSTIC IMAGING REPORT ---
Lumbar spine LUMBAR SPINE 2 OR 3 VIEW CLINICAL HISTORY: L5-S1 DECOMPRESSION laminectomy. Fusion. TECHNIQUE: Image intensifier COMPARISON STUDY: None FINDINGS: Findings consistent with posterior laminectomy and fusion L5-S1. Hardware is intact. Disc spacers present at the L5-S1 level. IMPRESSION: Anatomic alignment status post laminectomy and fusion L5-S1 level. Electronically signed by: Joselo Nettles M.D. 06/13/2016 2:34 PM Dictated Date/Time: 06/13/2016 2:33 PM
[2016-06-13] MEDS: FENTANYL CITRATE INJ 50 MCG/1 ML 2 ML VIAL IV PRN ×2 (14:40→14:46)
[2016-06-13] MEDS: SODIUM CHLORIDE 0.9% 1000ML 1,000 ML IV SCH ×2 (14:45→15:45)
[2016-06-13] MEDS ORDERED: FAMOTIDINE 20 MG TAB PO PRN (15:00)
--- NOTE | 2016-06-13 15:08 | Anesthesiology Progress Note ---
Anesthesia Post Op Note Date & Time Jun 13, 2016 at 15:08 Vital Signs Pain Intensity: 3 Vital Signs Past 12 Hours Date Time Temp Pulse Resp B/P Pulse Ox O2 Delivery O2 Flow Rate FiO2 06/13/16 14:50 78 12 128/91 93 Nasal Cannula 4 06/13/16 14:40 73 14 138/82 98 Mask 10 06/13/16 14:30 69 15 122/83 98 Mask 10 06/13/16 14:23 37.2 65 16 130/69 96 Mask 10 06/13/16 11:15 36.8 83 16 116/73 92 Nasal Cannula 3.0 06/13/16 07:30 Nasal Cannula 3.0 06/13/16 07:28 36.8 80 18 148/82 93 3.0 06/13/16 03:55 36.9 82 14 124/77 94 Room Air Notes Mental Status: alert / awake / arousable, participated in evaluation Pt Amnestic to Procedure: Yes Nausea / Vomiting: adequately controlled Pain: adequately controlled Airway Patency, RR, SpO2: stable & adequate BP & HR: stable & adequate Hydration State: stable & adequate Anesthetic Complications: no major complications apparent
[2016-06-13] MEDS ORDERED: NURSING VERBAL MED ORDER ONE (16:00)
[2016-06-13] MEDS: DOCUSATE SODIUM/SENNA 50/8.6MG TAB PO SCH (20:44)
[2016-06-13] MEDS: DEXAMETHASONE INJ 6 MG in SYRINGE 0 ML IV SCH (20:44)
[2016-06-13] MEDS: CEFAZOLIN IV 2,000 MG in DEXTROSE 5% 50ML 50 ML IV SCH (21:10)
[2016-06-13] MEDS ORDERED: NURSING DECISION MEDICATION ORDER SCH (23:15)
[2016-06-14 03:20] VITALS: BP 97/64; PULSE 69; TEMP 37.2; O2SAT 92
[2016-06-14] MEDS: DEXAMETHASONE INJ 6 MG in SYRINGE 0 ML IV SCH ×2 (03:21→11:31)
[2016-06-14] MEDS: CEFAZOLIN IV 2,000 MG in DEXTROSE 5% 50ML 50 ML IV SCH (03:21)
[2016-06-14] MEDS: SODIUM CHLORIDE 0.9% 1000ML 1,000 ML IV SCH (03:23)
[2016-06-14] MEDS ORDERED: NALOXONE HCL 0.4 MG/1 ML VIAL/CARP IV PRN (06:00)
[2016-06-14] MEDS ORDERED: DC PCA PRN (06:00)
[2016-06-14] MEDS: OXYCODONE HCL IR 5 MG TAB (IMMEDIATE RELEASE) PO PRN ×5 (06:04→23:20)
[2016-06-14 06:16] LABS: BASO % 0.1 %; BASO ABS # 0.01 K/uL (0-0.2); COMPLETE YES; EOS % 0.1 %; HEMATOCRIT 34.7 % (37-47); IG% 0.4 %; LYMPH % 7.8 %; LYMPH ABS # 1.16 K/uL (1.2-3.4); MEAN CELL VOLUME 87.4 fL (80-100); MEAN CORPUSCULAR HEMOGLOBIN 29.5 pg (25-34); MEAN CORPUSCULAR HGB CONC 33.7 g/dl (32-36); MEAN PLATELET VOLUME 9.5 fL (7.4-10.4); MONO % 6.5 %; NEUT % 85.1 %; PLATELET COUNT 251 K/uL (130-400); RED BLOOD COUNT 3.97 M/uL (4.2-5.4); WHITE BLOOD COUNT 14.88 K/uL (4.8-10.8)
[2016-06-14 06:46] LABS: BUN/CREATININE RATIO 18.4 (10-20); CREATININE 0.77 mg/dl (0.60-1.20); POTASSIUM 4.1 mmol/L (3.5-5.1)
[2016-06-14] MEDS ORDERED: NURSING VERBAL MED ORDER ONE (07:15)
[2016-06-14 07:18] VITALS: BP 109/72; PULSE 73; TEMP 36.9; O2SAT 93
[2016-06-14] MEDS ORDERED: OXYC-57 PO (07:33)
--- NOTE | 2016-06-14 07:34 | Discharge Instructions ---
Discharge Instructions Admission Reason for Admission: Hnp Herniated Nucleus Pulposus Discharge Discharge Diagnosis / Problem: Lumbar Disc Herniation Discharge Goals Goal(s): Decrease discomfort, Improve function, Increase independence Activity Recommendations Activity Limitations: as noted below Lifting Limitations: no more than 5 pounds Exercise/Sports Limitations: until after follow-up appointment May Resume Sexual Activity: after follow-up appointment Shower/Bathe: may shower/bathe in 3 days . Instructions / Follow-Up Instructions / Follow-Up ACTIVITY RECOMMENDATIONS: SELF CARE INSTRUCTIONS AFTER THORACIC/LUMBAR FUSIONS 1. You may walk to your tolerance. It is good exercise for your legs and back. Expect some back and intermittent leg aches and pains. 2. You may perform "counter-top" level activities (make a sandwich, kalia with a project, etc.). 3. No bending or lifting of more than 10 pounds or back twisting of any nature (roll like a log when turning in bed). 4. You may ride in a car for 20-30 minutes at a time. No driving until after your first visit with your doctor. 5. Frequent changes of position and restricting sitting to 30 minutes at a time will help limit the amount of back spasms and stiffness you may experience. 6. You may discontinue the use of ambulatory aids (cane, crutches, etc.) once your strength and confidence allow. 7. You may digital publishing specialist the shower and let water strike your incision when you arrive home at least once daily. Do not take a tub bath, sit in a hot tub or go into a swimming pool until after your first recheck in the office. SPECIAL CARE INSTRUCTIONS: VERY IMPORTANT TO READ AND REVIEW A. Your surgical incision has been closed with a cosmetic suture under the skin that will dissolve in about 6 weeks. In 14 days, you can use a pair of clean scissors and cut the suture that is left outside of the skin at the ends of your incision. 1. The small skin tapes can be removed 7 days after surgery if they have not fallen off by that point. 2. You may keep the wound open to air as much as possible to promote healing after post-op day number 5 unless told otherwise by your doctor. 3. If you think the wound looks like it is becoming infected (redness or worsening drainage) and/or you are experiencing fever, chill or worsening back pain and muscle spasms, contact the office so that we may evaluate you as soon as possible. B. Complications are uncommon, but please contact us if you have any signs or symptoms of: 1. wound infection (fever higher than 102.5 degrees F, redness, separation of wound, drainage, or increasing pain from the incision) 2. blood clots in legs (pain, swelling, redness and warmth in legs) 3. urinary tract infection (fever higher than 102.5 degrees F, burning upon urination or increased frequency of urination) 4. nerve problems (inability to walk on your toes or heels, numbness, loss of bowel or bladder control) 5. any other symptoms that concern you C. Please call the office at if you have any concerns or questions about your operation or recovery. D. No smoking! Smoking drastically decreases the chance of a solid fusion. E. Do not take any anti-inflammatory medications (Indocin, Advil, Motrin, Aspirin, Naprosyn, etc.) as these may inhibit the chance of a solid fusion. Tylenol is okay to take for pain. MANAGING PAIN AFTER SPINAL SURGERY 1. Narcotic medication is intended for short-term use and will be provided for surgical pain. Surgical pain usually lasts for a period of 4-6 weeks. Narcotic medication includes Percocet, Vicodin, Darvocet, Tylenol #3 or Lortab. 2. Longer-term pain is more appropriately treated with non-narcotic medication such as Tylenol ES. 3. Muscle spasm is not appropriately treated with narcotics. Muscle relaxers such as Soma, Flexeril or Skelaxin can be used along with Tylenol ES. 4. Remember that we all live with some "aches and pains". This is not unusual or uncommon after an injury or as we get older. a. Back pain is expected and may include muscle spasms for 4 to 6 weeks after surgery. The pain should gradually improve. If the pain worsens for no apparent reason, please contact the office. b. Intermittent leg pain may also be experienced and should not be concerned about unless it worsens for no apparent reason. If so, please contact the office. 5. We will provide appropriate medication within the normal guidelines of their prescribed use. We will also be very cautious and aware of potential abuse and extended duration of patients' medication needs. a. Pain medications are for your comfort and to assist with sleep and rest so that the tissue can heal. They are not provided in order to return to normal activity and should not be used through the day. To do so or worsening pain at night can result from ongoing tissue damage and development of tolerance to the prescribed medicine. 6. Please allow 2-3 days to process refills. Prescriptions will not be mailed but must be picked up at the office. FOLLOW UP VISIT: Keep your scheduled follow-up appointment. Any questions, please call the office at . Current Hospital Diet Patient's current hospital diet: Diabetes Type 2 Diet Discharge Diet Recommended Diet: Regular Diet Procedures Procedures Performed: L5-S1 Discectomy Decompression Posterior Fusion, Interbody Fusion, Arteriocyte Pending Studies Studies pending at discharge: no Laboratory Results Hemoglobin A1c Test 06/13/16 06:40 Range/Units Estimated Average Glucose 105 mg/dl Hemoglobin A1c 5.3 4.5-5.6 % Medical Emergencies . Who to Call and When: Medical Emergencies: If at any time you feel your situation is an emergency, please call 911 immediately. . Non-Emergent Contact Non-Emergency issues call your: Surgeon Call Non-Emergent contact if: temperature is above 101, your pain is not controlled, your pain is worsening, your pain is unusual for you, your pain is concerning you, wound has increased drainage, wound has increased redness, wound has increased pain, you have any medication questions . "Provider Documentation" section prepared by Fantasma Munoz. VTE Core Measure Inpt VTE Proph given/why not?: Jhonathan Alamo
--- NOTE | 2016-06-14 08:10 | Anesthesiology Progress Note ---
Anesthesia Post Op Note Date & Time Jun 14, 2016 at 08:09 Vital Signs Vital Signs Past 12 Hours Date Time Temp Pulse Resp B/P Pulse Ox O2 Delivery O2 Flow Rate FiO2 06/14/16 07:18 36.9 73 16 109/72 93 Room Air 06/14/16 03:20 37.2 69 16 97/64 92 Room Air 06/14/16 00:20 Room Air 06/13/16 22:54 37.2 77 16 96/61 93 Room Air Notes Mental Status: alert / awake / arousable, participated in evaluation Pt Amnestic to Procedure: Yes Nausea / Vomiting: adequately controlled Pain: adequately controlled Airway Patency, RR, SpO2: stable & adequate BP & HR: stable & adequate Hydration State: stable & adequate Anesthetic Complications: no major complications apparent
[2016-06-14] MEDS: BuPROPion SR 100 MG TABCR PO SCH ×2 (09:48→19:54)
[2016-06-14] MEDS: LISINOPRIL 10 MG TAB PO SCH (09:48)
[2016-06-14] MEDS: DOCUSATE SODIUM 100 MG CAP PO SCH ×2 (09:48→19:54)
[2016-06-14] MEDS: INSULIN ASPART 100 UNITS/ML 3 ML PEN SC SCH ×4 (09:51→21:00)
[2016-06-14] MEDS: KETOROLAC TROMETHAMINE 30 MG/ML VIAL IV PRN ×3 (10:17→22:01)
--- NOTE | 2016-06-14 10:59 | OPERATIVE REPORT ---
DATE OF OPERATION: 06/13/2016 PREOPERATIVE DIAGNOSES: 1. L5-S1 disk herniation and impending cauda equina syndrome. 2. L5-S1 disc degeneration. 3. Chronic low back pain. POSTOPERATIVE DIAGNOSIS: Same. PROCEDURES: 1. L5 laminectomy with right L5-S1 discectomy. 2. Nonsegmental pedicle screw instrumentation -- bilateral L5 and S1 with K2M Center pedicle screws. 3. Posterolateral fusion, L5-S1 -- bilateral with local bone, bone putty, bone marrow aspirate. 4. Right L5-S1 transforaminal lumbar interbody fusion with K2M titanium mesh preprinted cage, local bone, bone putty bone marrow aspirate. 5. Right iliac crest bone marrow aspiration stem cell concentration Arteriocyte system. SURGEON: Dr. Lawson. MANAGER MUTUAL FUND: OR staff. ANESTHESIA: General endotracheal anesthesia. COMPLICATIONS: None. ESTIMATED BLOOD LOSS: 170 mL. DESCRIPTION OF PROCEDURE: After identification of patient and operative level, she was brought to the OR where she underwent induction of general anesthesia. She was then positioned prone on Saurabh OR table. All bony prominences were well padded. Care was taken to avoid pressure on the periorbital area. Lumbosacral area was sterilely prepped and draped in usual fashion. Antibiotics were administered. Time-out was performed. Level was confirmed and skin incision was localized with lateral fluoroscopy and a spinal needle. I infiltrated the skin with 0.5% Marcaine with epinephrine, made skin incision from spinous process of L4 to the sacrum, performed routine posterior exposure out to the transverse process from L5 to the sacral ala. I placed Gelpi retractors, confirmed level with fluoroscopy and marked the operative level and performed an L5 laminectomy and takedown ligamentum flavum. I removed the medial facets with an osteotome and then exposed the dural tube widely and performed a wide discectomy of extruded fragments distal to the disc space and compressing the sacral nerve roots eccentric to the right. I removed all this loose disc material and palpated proximally and distally until no further free fragments were identified. I then did a complete discectomy through an annulotomy on the right side at L5-S1 and removed all disc material as well as cartilaginous endplates of the discs. I then placed pedicle screws bilaterally at L5 and S1 with K2M Center pedicle screws. I then prepared the disc space for cage insertion and filled the titanium mesh cage with bone putty, bone marrow aspirate, local bone. Bone marrow aspirate taken from the right iliac crest via separate stab incision with a Jamshidi needle concentrated with the Arteriocyte system applied to bone graft day care aide. Tamped the cage into position, had good stability and then lowered the Hira frame to restore lordosis, applied rods and end caps final tightening. I then irrigated with bacitracin solution and decorticated the transverse process of L5 and sacral ala bilaterally with a high speed bur. I then packed the lateral gutters with bone graft mixture as above at L5-S1 and then confirmed hemostasis and closed in layered fashion over JEANETTE drain. All sponge and needle counts were correct at the end of the case. I attest to the content of the Intraoperative Record and any orders documented therein. Any exceptio ns are noted below.
--- NOTE | 2016-06-14 11:39 | Orthopedic Progress Note ---
Orthopedic Progress Note Date of Service Jun 14, 2016. Subjective Post OP Day: 1 Reports: feeling well, pain controlled w PO medications, Denies: SOB, calf pain , chest pain, complaints, light headedness, nausea / vomiting Additional Notes: Doing well, improved from pre op state, no medical issues, pain controlled except for transition, stable. Objective calves soft nontender, N/V intact, capillary refill less than 2 sec., dressing C /D/I, A&O x3, toes mobile, hemovac drainage Date Time Temp Pulse Resp B/P Pulse Ox O2 Delivery O2 Flow Rate FiO2 06/14/16 08:41 Room Air 06/14/16 07:18 36.9 73 16 109/72 93 Room Air 06/14/16 03:20 37.2 69 16 97/64 92 Room Air 06/14/16 00:20 Room Air 06/13/16 22:54 37.2 77 16 96/61 93 Room Air 06/13/16 18:25 36.9 74 18 106/69 92 Room Air 06/13/16 17:25 36.7 73 18 107/65 94 Room Air 06/13/16 16:30 95 Room Air 2.0 06/13/16 16:25 36.7 81 18 105/70 92 Room Air 06/13/16 15:55 95 Nasal Cannula 2.0 06/13/16 15:54 36.8 73 20 119/75 96 Room Air 06/13/16 15:27 36.8 79 18 116/72 98 Nasal Cannula 4.0 06/13/16 15:25 36.8 79 20 116/72 95 Nasal Cannula 2.0 06/13/16 15:15 73 13 134/89 95 Nasal Cannula 4 06/13/16 15:00 36.8 78 12 113/80 97 Nasal Cannula 4 06/13/16 14:50 78 12 128/91 93 Nasal Cannula 4 06/13/16 14:40 73 14 138/82 98 Mask 10 06/13/16 14:30 69 15 122/83 98 Mask 10 06/13/16 14:23 37.2 65 16 130/69 96 Mask 10 Laboratory Results 24 Hours: Test 06/14/16 05:55 White Blood Count 14.88 K/uL Red Blood Count 3.97 M/uL Hemoglobin 11.7 g/dL Hematocrit 34.7 % Mean Corpuscular Volume 87.4 fL Mean Corpuscular Hemoglobin 29.5 pg Mean Corpuscular Hemoglobin Concent 33.7 g/dl Platelet Count 251 K/uL Mean Platelet Volume 9.5 fL Neutrophils (%) (Auto) 85.1 % Lymphocytes (%) (Auto) 7.8 % Monocytes (%) (Auto) 6.5 % Eosinophils (%) (Auto) 0.1 % Basophils (%) (Auto) 0.1 % Neutrophils # (Auto) 12.68 K/uL Lymphocytes # (Auto) 1.16 K/uL Monocytes # (Auto) 0.96 K/uL Eosinophils # (Auto) 0.01 K/uL Basophils # (Auto) 0.01 K/uL Assessment & Plan Assessment: s/p lumbar decomp/fusion Plan: Begin PT, add Toradol for pain, d/c coleman, continue drain, dvt prophylaxis, home tomorrow
[2016-06-14 15:15] VITALS: BP 103/68; PULSE 75; TEMP 36.8; O2SAT 92
[2016-06-14] MEDS: LORAZEPAM 1 MG TAB PO PRN (15:33)
[2016-06-14] MEDS: HYDROmorphone INJ 1 MG/ML SYR IV PRN ×2 (15:34→19:47)
--- NOTE | 2016-06-14 18:09 | Progress Note ---
Internal Med Progress Note Date of Service: Jun 14, 2016. Provider Documentation: SUBJECTIVE: Patient is seen and examined at bedside. She states having pain at the surgical site. Denies any chest pain, SOB, dizziness. OBJECTIVE: Vital Signs-as noted below Physical Exam: General Appearance:Moderately built and nourished, Obese Head: normocephalic, Atraumatic Eyes: normal inspection, EOMI, PERRLA Neck: supple, no JVD, Trachea midline Respiratory/Chest: Normal breath sounds, CTA Cardiovascular: S1, S2, NSR, No murmur Abdomen/GI:Soft, Non tender, Bowel sounds present Extremities/Musculoskelatal:normal inspection, no pedal edema Neurologic/Psych:AAOX3, grossly no focal neurological deficits Skin: normal color, warm Lab data as noted below. ASSESSMENT & PLAN: 40 yo female with acute disc herniation at L5-S1 level causing radiculopathy, numbness in right leg, admitted by orthopedic surgery. Lumbar disc herniation S/P s/p lumbar decompression and fusion Pain control and anticoagulation as per Ortho Orthopedics on board Bowel regimen to prevent constipation PT/OT Well controlled type 2 DM A1c 5.3 hold metformin Continue SSI while inpatient Hypertension Stable continue lisinopril Mild intermittent Asthma no active issues continue albuterol PRN Depression continue Wellbutrin DVT prophylaxis: per orthopedics Disposition: Patient being planned for DC tomorrow by Ortho Vital Signs: Date Time Temp Pulse Resp B/P Pulse Ox O2 Delivery O2 Flow Rate FiO2 06/14/16 15:48 Room Air 06/14/16 15:15 36.8 75 18 103/68 92 Room Air 06/14/16 08:41 Room Air 06/14/16 07:18 36.9 73 16 109/72 93 Room Air 06/14/16 03:20 37.2 69 16 97/64 92 Room Air 06/14/16 00:20 Room Air 06/13/16 22:54 37.2 77 16 96/61 93 Room Air 06/13/16 18:25 36.9 74 18 106/69 92 Room Air Lab Results: Results Past 24 Hours Test 06/13/16 21:14 06/14/16 05:55 06/14/16 06:05 06/14/16 08:16 Range/Units Bedside Glucose 139 119 70-90 mg/dl White Blood Count 14.88 4.8-10.8 K/uL Red Blood Count 3.97 4.2-5.4 M/uL Hemoglobin 11.7 12.0-16.0 g/dL Hematocrit 34.7 37-47 % Mean Corpuscular Volume 87.4 80-100 fL Mean Corpuscular Hemoglobin 29.5 25-34 pg Mean Corpuscular Hemoglobin Concent 33.7 32-36 g/dl Platelet Count 251 130-400 K/uL Mean Platelet Volume 9.5 7.4-10.4 fL Neutrophils (%) (Auto) 85.1 % Lymphocytes (%) (Auto) 7.8 % Monocytes (%) (Auto) 6.5 % Eosinophils (%) (Auto) 0.1 % Basophils (%) (Auto) 0.1 % Neutrophils # (Auto) 12.68 1.4-6.5 K/uL Lymphocytes # (Auto) 1.16 1.2-3.4 K/uL Monocytes # (Auto) 0.96 0.11-0.59 K/uL Eosinophils # (Auto) 0.01 0-0.5 K/uL Basophils # (Auto) 0.01 0-0.2 K/uL RDW Standard Deviation 49.0 36.4-46.3 fL RDW Coefficient of Variation 15.2 11.5-14.5 % Immature Granulocyte % (Auto) 0.4 % Immature Granulocyte # (Auto) 0.06 0.00-0.02 K/uL Sodium Level 140 136-145 mmol/L Potassium Level 4.1 3.5-5.1 mmol/L Chloride Level 106 98-107 mmol/L Carbon Dioxide Level 25 21-32 mmol/L Anion Gap 9.0 3-11 mmol/L Blood Urea Nitrogen 14 7-18 mg/dl Creatinine 0.77 0.60-1.20 mg/dl Est Creatinine Clear Calc Drug Dose 95.1 ml/min Estimated GFR () 111.2 Estimated GFR (Non- 95.9 BUN/Creatinine Ratio 18.4 10-20 Random Glucose 109 70-99 mg/dl Calcium Level 8.0 8.5-10.1 mg/dl Test 06/14/16 11:53 06/14/16 16:42 Range/Units Bedside Glucose 102 142 70-90 mg/dl
[2016-06-14] MEDS: DOCUSATE SODIUM/SENNA 50/8.6MG TAB PO SCH (19:53)
[2016-06-14 23:43] VITALS: BP 128/76; PULSE 65; TEMP 36.9; O2SAT 92
[2016-06-15] MEDS: OXYCODONE/ACETAMINOPHEN 5-325 TAB PO PRN ×3 (01:12→09:58)
[2016-06-15] MEDS: OXYCODONE HCL IR 5 MG TAB (IMMEDIATE RELEASE) PO PRN (05:20)
[2016-06-15] MEDS ORDERED: POLYETHYLENE (MIRALAX) 17 GM PACK PO SCH (06:00)
[2016-06-15] MEDS ORDERED: TIZA4TAB3 PO (06:37)
[2016-06-15 06:38] VITALS: BP 104/70; PULSE 79; TEMP 36.6; O2SAT 94
--- NOTE | 2016-06-15 07:04 | Orthopedic Progress Note ---
Orthopedic Progress Note Date of Service Jun 15, 2016. Subjective Additional Notes: Doing well, pain is well controlled, restful night, stable medically Objective calves soft nontender, N/V intact, capillary refill less than 2 sec., dressing C /D/I, A&O x3, toes mobile, hemovac drainage Date Time Temp Pulse Resp B/P Pulse Ox O2 Delivery O2 Flow Rate FiO2 06/15/16 06:38 36.6 79 18 104/70 94 Room Air 06/14/16 23:43 36.9 65 18 128/76 92 06/14/16 23:15 Room Air 06/14/16 15:48 Room Air 06/14/16 15:15 36.8 75 18 103/68 92 Room Air 06/14/16 08:41 Room Air 06/14/16 07:18 36.9 73 16 109/72 93 Room Air Assessment & Plan Assessment: s/p lumbar decomp/fusion Plan: Doing well, discharge home today
[2016-06-15 07:14] VITALS: BP 95/63; PULSE 66; TEMP 36.6; O2SAT 94
[2016-06-15] MEDS: KETOROLAC TROMETHAMINE 30 MG/ML VIAL IV PRN (07:57)
[2016-06-15] MEDS: INSULIN ASPART 100 UNITS/ML 3 ML PEN SC SCH (08:03)
[2016-06-15] MEDS: LISINOPRIL 10 MG TAB PO SCH (08:04)
[2016-06-15] MEDS: BuPROPion SR 100 MG TABCR PO SCH (08:04)
[2016-06-15] MEDS: DOCUSATE SODIUM 100 MG CAP PO SCH (08:04)
[2016-06-15 09:34] VITALS: BP 95/63; PULSE 66; TEMP 36.6; O2SAT 94
--- NOTE | 2016-06-28 09:53 | DISCHARGE SUMMARY ---
PRINCIPAL DIAGNOSES: 1. L5-S1 disc herniation, impending cauda equina. 2. L5-S1 disc degeneration. POSTOPERATIVE DIAGNOSES: Same. PROCEDURE: L5-S1 decompression and instrumented fusion. SURGEON: Dr. Andriy Lawson. HISTORY OF PRESENT ILLNESS: Please refer to EMR. HOSPITAL COURSE: On 06/13/2016, Ms. Mead was admitted to [facility] with the above diagnoses. She was taken to the medical floor where she received preoperative care for the above procedure. She remained stable until the date of 06/13/2016 when she was taken to the operative holding area. Here, she was identified and again evaluated and cleared for surgical management. She was then transported to the operating room where she was introduced with general endotracheal anesthesia. Sterile conditions were set and she successfully underwent the above procedure without complication or issue. She was awakened in stable and satisfactory condition and then transported to postoperative recovery. Here, her vital signs and pain were monitored and managed. She remained medically stable and was then returned to the orthopedic floor for continued postoperative care. Throughout her stay, pain was well managed through physician direction. Vital signs and labs remained stable. She participated in physical therapy with good progress. JEANETTE output significantly diminished. DVT and GI prophylactic measures were taken. She was evaluated on 06/15/2016 and indicated for return home. On this date, she was discharged from [facility]. DISPOSITION: Home. DISPOSITION CONDITION: Stable. NOTED COMPLICATIONS OR ISSUES: Zero. DISCHARGE INSTRUCTIONS: Please refer to EMR.
== END 2016-06-15 11:30 | disposition home or self-care (01) | DRG 460 ==
LOC: ENRESERVDT → ENRESERVTM → C.EDB 07:45 → C.MSN 12:13 → OBSVTOIN 06-13 14:26
PROVIDERS: ADMIT Orthopaedic Surgery Orthopaedic Surgery of the Spine; ATTEND Orthopaedic Surgery Orthopaedic Surgery of the Spine
PROC: 07DR3ZZ Extraction of Iliac Bone Marrow, Percutaneous Approach (ICD-10-PCS; principal; 2016-06-13 07:30)
PROC: 0ST40ZZ Resection of Lumbosacral Disc, Open Approach (ICD-10-PCS; principal; 2016-06-13 07:30)
PROC: 0SG30AJ Fusion of Lumbosacral Joint with Interbody Fusion Device, Posterior Approach, Anterior Column, Open Approach (ICD-10-PCS; principal; 2016-06-13 07:30)
PROC: 0SG3071 Fusion of Lumbosacral Joint with Autologous Tissue Substitute, Posterior Approach, Posterior Column, Open Approach (ICD-10-PCS; principal; 2016-06-13 07:30)
DX: M51.17 Intervertebral disc disorders with radiculopathy, lumbosacral region (principal); G83.4 Cauda equina syndrome; R20.0 Anesthesia of skin; R20.2 Paresthesia of skin; I10 Essential (primary) hypertension; J45.20 Mild intermittent asthma, uncomplicated; R73.03 Prediabetes; F32.9 Major depressive disorder, single episode, unspecified; F17.210 Nicotine dependence, cigarettes, uncomplicated; E66.9 Obesity, unspecified; Z68.35 Body mass index [BMI] 35.0-35.9, adult; Z79.1 Long term (current) use of non-steroidal anti-inflammatories (NSAID); Z79.84 Long term (current) use of oral hypoglycemic drugs; Z79.891 Long term (current) use of opiate analgesic; Z79.899 Other long term (current) drug therapy

== ENCOUNTER 2017-07-05 07:06 | Emergency (ER) | payer BC ==
[~2017-07-05] VITALS: Ht 154.9 cm; Wt 91.1 kg
[~2017-07-05 07:06] MED LIST changes: +ALBU18002 INH; -ALBU1AER9 INH; +BUPR100T8 PO; +DOXY100C2 PO; -HYDR-5688 PO; -MELO7.5T5 PO; +METF-384 PO; +PRED10TA PO; -TRAM-10 PO; +ULT50 PO
[2017-07-05 07:13] VITALS: Ht 154.9 cm; Wt 91.1 kg
[2017-07-05] MEDS ORDERED: DICL-201 PO (07:23)
[2017-07-05] MEDS ORDERED: LXP10 PO (07:23)
[2017-07-05] MEDS ORDERED: ALBUT/IPRATROP 3MG/0.5MG NEB 3 ML VIAL INH STA (07:24)
[2017-07-05 07:38] VITALS: TEMP 36.7
--- NOTE | 2017-07-05 07:38 | DIAGNOSTIC IMAGING REPORT ---
CHEST ONE VIEW PORTABLE CLINICAL HISTORY: EVALUATE RESPIRATORY DISTRESS.DYSPNEA dyspnea COMPARISON STUDY: 06/12/2016 FINDINGS: The bones soft tissues and hemidiaphragms are normal. The cardiomediastinal silhouette is normal. The lungs are clear. The pulmonary vasculature is normal. IMPRESSION: Negative chest. The above report was generated using voice recognition software. It may contain grammatical, syntax or spelling errors. Electronically signed by: Joselo Nettles M.D. 07/05/2017 7:36 AM Dictated Date/Time: 07/05/2017 7:35 AM
--- NOTE | 2017-07-05 07:45 | EMERGENCY ROOM VISIT NOTE ---
History Report prepared by Delia: Linda Gabriel Under the Supervision of: Dr. John Stafford M.D. First contact with patient: 07:22 Chief Complaint: SHORTNESS OF BREATH Stated Complaint: PNUEMONIA,CANT BREATH History of Present Illness The patient is a 41 year old female who presents to the Emergency Room with complaints of worsening shortness of breath for the past 4 days. The patient states that she started to feel unwell 4 days ago and was feeling very tired and weak. She states that she was unable to get out of bed for two days. She is a smoker and states that she was feeling so weak that she was unable to smoke. The patient saw her PCP two days ago for her symptoms. She had a chest x-ray and was diagnosed with pneumonia. She was placed on prednisone and doxycycline. The patient states that her symptoms have worsened and she feels like she can't breathe. Yesterday the patient developed a non-productive, dry cough. She reports intermittent fevers as well as nausea and vomiting. She did have a flu shot this year. The patient has a history of asthma. She uses an inhaler PRN. She has a nebulizer at home and has been using that without any relief. She denies any personal history of CHF, COPD, emphysema, and blood clots. She denies any family history of clots. The patient denies any recent long trips. She denies diarrhea and any sick contacts. Source of History: patient Onset: 4 days ago Position: chest (respiratory) Quality: other (shortness of breath) Timing: worsening Associated Symptoms: + fevers, + cough, + nausea, + vomiting, + fatigue, + weakness, No diarrhea Review of Systems See HPI for pertinent positives & negatives. A total of 10 systems reviewed and were otherwise negative. Past Medical & Surgical Medical Problems: (1) AC PYELONEPHRITIS NOS (2) ANXIETY STATE NOS (3) ASTHMA, UNSPECIFIED (4) DEPRESSIVE DISORDER NEC (5) ESOPHAGEAL REFLUX (6) HNP (herniated nucleus pulposus) (7) HYPERTENSION NOS (8) OPIOID DEPENDENCE-UNSPEC (9) OVARIAN CYST NEC/NOS (10) PNEUMONIA, ORGANISM NOS Family History FH: heart disease [place] (myocardial infarction) Social History Smoking Status: Current Every Day Smoker Alcohol Use: none Marital Status: Housing Status: lives with significant other Occupation Status: employed Current/Historical Medications Scheduled Acyclovir (Zovirax), 400 MG PO BID PRN Doxycycline Hyclate (Vibramycin), 1 CAP PO BID Oseltamivir (Tamiflu), 75 MG PO BID Prednisone (Prednisone), 1 DOSE PO UD Scheduled PRN Albuterol Sulf (Albuterol Sulfate), 1 DOSE NEB Q4H PRN for Wheezing Albuterol Sulfate (Proair Respiclick), 2 PUFFS INH Q4H PRN for Shortness of Breath Lorazepam (Ativan), 1 MG PO Q6H PRN for Anxiety/Agitation Tramadol HCl (Tramadol HCl), 1 TAB PO Q6H PRN for Moderate Pain Allergies Coded Allergies: No Known Allergies (Verified , 07/05/17) Physical Exam Vital Signs Date Time Temp Pulse Resp B/P (MAP) Pulse Ox O2 Delivery O2 Flow Rate FiO2 07/05/17 10:20 97 20 122/75 95 Room Air 07/05/17 09:00 96 Room Air 07/05/17 08:55 89 20 127/89 94 Room Air 07/05/17 07:46 94 Room Air 07/05/17 07:45 84 07/05/17 07:38 36.7 90 18 128/85 94 Room Air 07/05/17 07:35 Room Air 07/05/17 07:13 36.8 98 20 130/86 93 Room Air Physical Exam GENERAL: Patient is in no acute distress, anxious. HEENT: No acute trauma, normocephalic atraumatic, mucous membranes moist, no nasal congestion, no scleral icterus. NECK: No stridor, no adenopathy, no meningismus, trachea is midline. LUNGS: Scattered wheezes bilaterally, no rhonchi, breath sounds equal, no respiratory distress. HEART: Without murmurs gallops or rubs, regular rate and rhythm. ABDOMEN: Soft, nontender, bowel sounds positive, no hernias, no peritonitis. EXTREMITIES: No cyanosis or edema, full range of motion of all the joints without pain or difficulty, no signs for acute trauma. NEUROLOGIC: Oriented x 3, no acute motor or sensory deficits, no focal weakness. SKIN: No rash, no jaundice, no diaphoresis. Medical Decision & Procedures ER Provider Diagnostic Interpretation: Radiology results as stated below per my review and radiologist interpretation: CHEST ONE VIEW PORTABLE CLINICAL HISTORY: EVALUATE RESPIRATORY DISTRESS.DYSPNEA dyspnea COMPARISON STUDY: 06/12/2016 FINDINGS: The bones soft tissues and hemidiaphragms are normal. The cardiomediastinal silhouette is normal. The lungs are clear. The pulmonary vasculature is normal. IMPRESSION: Negative chest. The above report was generated using voice recognition software. It may contain grammatical, syntax or spelling errors. Electronically signed by: Joselo Nettles M.D. 07/05/2017 7:36 AM Dictated Date/Time: 07/05/2017 7:35 AM Laboratory Results 07/05/17 07:50 Red Blood Count 4.80, Mean Corpuscular Volume 83.3, Mean Corpuscular Hemoglobin 27.7, Mean Corpuscular Hemoglobin Concent 33.3, Mean Platelet Volume 9.5, Neutrophils (%) (Auto) 73.0, Lymphocytes (%) (Auto) 18.2, Monocytes (%) (Auto) 8.2, Eosinophils (%) (Auto) 0.0, Basophils (%) (Auto) 0.3, Neutrophils # (Auto) 7.48, Lymphocytes # (Auto) 1.87, Monocytes # (Auto) 0.84, Eosinophils # (Auto) 0.00, Basophils # (Auto) 0.03 07/05/17 07:50 Test 07/05/17 07:40 07/05/17 07:50 Influenza Type A Antigen POS for Influ A (NEG) Influenza Type B Antigen Neg for Influ B (NEG) White Blood Count 10.25 K/uL (4.8-10.8) Red Blood Count 4.80 M/uL (4.2-5.4) Hemoglobin 13.3 g/dL (12.0-16.0) Hematocrit 40.0 % (37-47) Mean Corpuscular Volume 83.3 fL (80-100) Mean Corpuscular Hemoglobin 27.7 pg (25-34) Mean Corpuscular Hemoglobin Concent 33.3 g/dl (32-36) Platelet Count 292 K/uL (130-400) Mean Platelet Volume 9.5 fL (7.4-10.4) Neutrophils (%) (Auto) 73.0 % Lymphocytes (%) (Auto) 18.2 % Monocytes (%) (Auto) 8.2 % Eosinophils (%) (Auto) 0.0 % Basophils (%) (Auto) 0.3 % Neutrophils # (Auto) 7.48 K/uL (1.4-6.5) Lymphocytes # (Auto) 1.87 K/uL (1.2-3.4) Monocytes # (Auto) 0.84 K/uL (0.11-0.59) Eosinophils # (Auto) 0.00 K/uL (0-0.5) Basophils # (Auto) 0.03 K/uL (0-0.2) RDW Standard Deviation 47.2 fL (36.4-46.3) RDW Coefficient of Variation 15.4 % (11.5-14.5) Immature Granulocyte % (Auto) 0.3 % Immature Granulocyte # (Auto) 0.03 K/uL (0.00-0.02) D-Dimer 490 ug/L FEU (0-500) Anion Gap 8.0 mmol/L (3-11) Est Creatinine Clear Calc Drug Dose 89.7 ml/min Estimated GFR () 99.4 Estimated GFR (Non- 85.7 BUN/Creatinine Ratio 13.0 (10-20) Calcium Level 8.6 mg/dl (8.5-10.1) Troponin I < 0.015 ng/ml (0-0.045) Laboratory results reviewed by me. Medications Administered Medications (Trade) Dose Ordered Sig/Bam Route Start Time Stop Time Status Last Admin Dose Admin Albuterol/ Ipratropium (Duoneb) 3 ml NOW STAT INH 07/05/17 07:24 07/05/17 07:28 DC 07/05/17 07:45 3 ML Oseltamivir Phosphate (Tamiflu Cap) 75 mg NOW STAT PO 07/05/17 08:24 07/05/17 08:25 DC 07/05/17 09:03 75 MG Lorazepam (Ativan Tab) 1 mg NOW STAT SL 07/05/17 08:48 07/05/17 08:49 DC 07/05/17 09:03 1 MG ECG Per My Interpretation Indication: SOB/dyspnea Rate (beats per minute): 88 Rhythm: sinus rhythm Findings: PVC, T-wave inversion (diffuse), other (diffuse T wave change; no ST elevation) Comparison ECG Date: 06/12/16 Change: T-wave abnormalities are more pronounced today, otherwise no significant change. ED Course 721: The patient was evaluated in room B3B. A complete history and physical exam was performed. 0724: DuoNeb 3 ml INH 0824: Tamiflu 75 mg PO 0844: Upon reevaluation the patient is anxious. She will have an ambulatory trial to see if her O2 saturation remains stable. 0848: Ativan 1 mg SL 0906: The patient's O2 saturation was 96% on room air with ambulating. 1002: I reassessed the patient at this time. She is feeling better and resting comfortably. I discussed the results and treatment plan with the patient. I answered all pertaining questions that she had. She expressed understanding and verbalized agreement. The patient will be discharged home. Medical Decision Differential diagnoses includes pneumonia, bronchitis, influenza, failed outpatient treatment, cardiac ischemia, dysrhythmia, anemia, PE. There is no leukocytosis or concerning anemia. No significant electrolyte abnormality or kidney failure. Influenza testing is positive for influenza A. EKG shows a sinus rhythm with some nonspecific ST change, the EKG looks similar to previous EKGs. Cardiac enzyme testing times one is not consistent with acute cardiac injury. Chest x-ray does not show pneumonia or CHF. The patient was walked around the ED, she did not have any drop of her O2 saturation. The patient received a DuoNeb, oral Tamiflu and oral Ativan, she is feeling improved. The patient is being discharged to continue the doxycycline, prednisone and albuterol. I will add Tamiflu. Rest and hydration were encouraged. If she is worsening, she should return for reassessment. She appears to have acute influenza with a flare of her asthma. [place] Drug Monitoring Program Search Results: patient reviewed within database Drug Monitoring Findings: No recent prescriptions for any benzodiazepines Medication Reconcilliation Current Medication List: was personally reviewed by me Blood Pressure Screening Patient's blood pressure: Normal blood pressure Impression Primary Impression: Influenza A Additional Impression: Asthma with exacerbation Scribe Attestation The scribe's documentation has been prepared under my direction and personally reviewed by me in its entirety. I confirm that the note above accurately reflects all work, treatment, procedures, and medical decision making performed by me. Departure Information Dispostion Home / Self-Care Prescriptions Albuterol Sulf (Albuterol Sulfate) 2.5 Mg/0.5 Ml Nebu 1 DOSE NEB Q4H Y for Wheezing, #30 DOSE 3 Refills Prov: John Stafford M.D. 07/05/17 Lorazepam (ATIVAN) 1 Mg Tab 1 MG PO Q6H Y for Anxiety/Agitation, #10 TAB Prov: John Stafford M.D. 07/05/17 Oseltamivir (Tamiflu) 75 Mg Cap 75 MG PO BID, #10 CAP Prov: John Stafford M.D. 07/05/17 Referrals Oni Gillette III, M.D. (PCP) Forms HOME CARE DOCUMENTATION FORM, IMPORTANT VISIT INFORMATION Patient Instructions My [facility] Additional Instructions albuterol/duo neb every 4 hours rest fluids tylenol for aches and pain continue the prednisone and doxycycline add tamiflu 2x per day for 5 days use ativan 1 tab every 6 hours as needed for anxiety return for worsening breathing see joe torrez for a recheck monday Problem Qualifiers
[2017-07-05 07:46] VITALS: O2SAT 94
[2017-07-05 08:19] LABS: INFLUENZA B ANTIGEN Neg for Influ B (NEG)
[2017-07-05 08:19] LABS: BASO % 0.3 %; BASO ABS # 0.03 K/uL (0-0.2); HEMOGLOBIN 13.3 g/dL (12.0-16.0); IG# 0.03 K/uL (0.00-0.02); LYMPH % 18.2 %; LYMPH ABS # 1.87 K/uL (1.2-3.4); MEAN CELL VOLUME 83.3 fL (80-100); MEAN CORPUSCULAR HEMOGLOBIN 27.7 pg (25-34); MEAN CORPUSCULAR HGB CONC 33.3 g/dl (32-36); MEAN PLATELET VOLUME 9.5 fL (7.4-10.4); MONO % 8.2 %; MONO ABS # 0.84 K/uL (0.11-0.59); NEUT ABS # 7.48 K/uL (1.4-6.5); PLATELET COUNT 292 K/uL (130-400); RED CELL DISTRIBUTION WIDTH CV 15.4 % (11.5-14.5); RED CELL DISTRIBUTION WIDTH SD 47.2 fL (36.4-46.3); WHITE BLOOD COUNT 10.25 K/uL (4.8-10.8)
[2017-07-05] MEDS ORDERED: OSELTAMIVIR PHOSPHATE 75 MG CAP PO STA (08:24)
[2017-07-05 08:36] LABS: BLOOD UREA NITROGEN 11 mg/dl (7-18); CALCIUM 8.6 mg/dl (8.5-10.1); CARBON DIOXIDE 24 mmol/L (21-32); CREATININE 0.84 mg/dl (0.60-1.20); GLUCOSE 100 mg/dl (70-99); POTASSIUM 3.2 mmol/L (3.5-5.1); SODIUM 143 mmol/L (136-145)
[2017-07-05] MEDS ORDERED: LORAZEPAM 1 MG TAB SL STA (08:48)
[2017-07-05] MEDS ORDERED: OSEL75CA12 PO (10:18)
[2017-07-05] MEDS ORDERED: ATV/1 PO (10:18)
[2017-07-05 10:20] VITALS: BP 122/75; PULSE 97; O2SAT 95
[2017-07-05] MEDS ORDERED: PRVIN525X NEB (10:56)
== END 2017-07-05 10:50 | disposition home or self-care (01) ==
LOC: C.EDB 07:07
DX: J10.1 Influenza due to other identified influenza virus with other respiratory manifestations (principal); J45.901 Unspecified asthma with (acute) exacerbation; F17.200 Nicotine dependence, unspecified, uncomplicated; I10 Essential (primary) hypertension; N83.209 Unspecified ovarian cyst, unspecified side; Z82.49 Family history of ischemic heart disease and other diseases of the circulatory system

== ENCOUNTER 2018-05-04 07:40 | Observation (INO) ==
--- NOTE | 2018-04-11 14:58 | PAT Medication Instructions ---
Medication Instructions Date of Service April 11, 2018 Home Medications acyclovir 400 mg PO UD PRN albuterol sulfate [Ventolin HFA] 1 puff INHALATION UD PRN aspirin [Aspir-81] 1 tab PO QAM atorvastatin 10 mg PO QAM furosemide 40 mg PO DAILY PRN gabapentin 400 mg PO TID lisinopril 10 mg PO QAM metformin 500 mg PO BID potassium chloride 20 meq PO DAILY tramadol 50 mg PO UD PRN varenicline [Chantix] 1 dose PO UD Continue as directed acyclovir 400 mg PO UD PRN(if needed) Check with MD/Surgeon-instructions aspirin [Aspir-81] 1 tab PO QAM Hold the morning of surgery furosemide 40 mg PO DAILY PRN lisinopril 10 mg PO QAM metformin 500 mg PO BID potassium chloride 20 meq PO DAILY varenicline [Chantix] 1 dose PO UD Take morning of surgery Take the following medication the morning of surgery with a sip of water, OTHERWISE NOTHING TO EAT OR DRINK AFTER MIDNIGHT: albuterol sulfate [Ventolin HFA] 1 puff INHALATION UD PRN atorvastatin 10 mg PO QAM gabapentin 400 mg PO TID tramadol 50 mg PO UD PRN (okay to take up to 4 hours prior to surgery if needed) Take evening before surgery albuterol sulfate [Ventolin HFA] 1 puff INHALATION UD PRN (if needed) furosemide 40 mg PO DAILY PRN (if needed) gabapentin 400 mg PO TID metformin 500 mg PO BID tramadol 50 mg PO UD PRN (if needed) Other Notes If you have any questions please call us at [phone] or [phone] or [phone] or [phone]
--- NOTE | 2018-04-12 09:29 | Anesthesiology Consultation ---
Date of Service April 12, 2018 Assessment & Plan (1) Encounter for pre-operative examination: Plan: - Check test AM DOS - Cardio= 03/21/18= strong family history of premature CAD. ASA 81mg initiated. DSE ordered for further evaluation. DSE done 03/28/18 and reviewed by cardio= "normal stress test. structurally normal heart at rest as well." Chart Review Chart Review: Acceptable Risk for Surgery (PENDING AM DOS LABS (CBC, BMP)) and Patient NOT seen in Pre Admission Testing History Surgery Operation Date: 05/04/18 08:50 Proposed Procedures p Robotic Total Laparoscopy Hysterectomy - Clark Blas MD Height/Weight Height: 5 ft 1.5 in Weight: 95.254 kg Allergies Allergy/AdvReac Type Severity Reaction Status Date / Time No Known Allergies Allergy Verified 07/05/17 07:35 Medications Home Medications Medication Instructions Recorded Confirmed Last Taken acyclovir 400 mg PO UD PRN 04/04/18 04/04/18 Unknown albuterol sulfate [Ventolin HFA] 1 puff INHALATION UD PRN 04/04/18 04/04/18 Unknown aspirin [Aspir-81] 1 tab PO QAM 04/04/18 04/04/18 Unknown atorvastatin 10 mg PO QAM 04/04/18 04/04/18 Unknown furosemide 40 mg PO DAILY PRN 04/04/18 04/04/18 Unknown gabapentin 400 mg PO TID 04/04/18 04/04/18 Unknown lisinopril 10 mg PO QAM 04/04/18 04/04/18 Unknown metformin 500 mg PO BID 04/04/18 04/04/18 Unknown potassium chloride 20 meq PO DAILY 04/04/18 04/04/18 Unknown tramadol 50 mg PO UD PRN 04/04/18 04/04/18 Unknown varenicline [Chantix] 1 dose PO UD 04/04/18 04/04/18 Unknown Past Medical History Medical History History of pneumonia 06/2017 S/P ANTIBIOTICS/STEROIDS Obesity Asthma History of back problems Hyperlipidemia Hypertension Lower extremity edema PCP/CARDIO MONITORING Past Family History Family History Other Family history of cancer Past Surgical History Surgical History History of arthroscopy of left shoulder History of bunionectomy LEFT History of lumbar fusion History of oral surgery TEETH EXTRACTION Social History Smoking Status: Current every day smoker tobacco type: cigarettes Smoking cigarettes per day: 3/4 PPD Do You Dip or Chew Tobacco: No Hx Alcohol Use: No Hx Substance Use: No substance use type: does not use Testing Electrocardiogram Date: 03/21/18 NSR with 76bpm. Borderline criteria for septal infarct, age undetermined. TWA, considering anterior ischemia (subsequent DSE done 03/28/18). Stress Test Date: 03/28/18 Type: DSE Stress ECHO negative for inducible ischemia at 108%MPHR. EF 55-60%. Mild cLVH. No significant valvular disease.
[~2018-05-04 07:40] MED LIST changes: +ACETAMINOPHEN 1000 MG/100 ML IV IV ONE; -ACYC-65 PO; -ALBU18002 INH; -BUPR100T8 PO; +CEFAZOLIN 3000MG 65 ML IV SCH; -DOXY100C2 PO; -LISI-791 PO; -METF-384 PO; -PRED10TA PO; -ULT50 PO
[2018-05-04] MEDS ORDERED: LIDOCAINE HCL 2% 2 ML VIAL/AMP(20MG/ML) INFIL ONE (08:17)
[2018-05-04] MEDS ORDERED: ONDANSETRON INJ 2 MG/ML 2 ML VIAL ONE ×2 (08:17→13:11)
[2018-05-04] MEDS ORDERED: DEXAMETHASONE SOD INJ 4 MG/ML VIAL ONE (08:17)
[2018-05-04] MEDS ORDERED: PROPOFOL IV EMULSION 10 MG/ML 20 ML VIAL IV ONE (08:17)
[2018-05-04] MEDS ORDERED: MIDAZOLAM HCL 1 MG/ML 2ML VIAL ONE (08:18)
[2018-05-04] MEDS ORDERED: fentaNYL citrate 100 MCG/2 ML VIAL ONE ×3 (08:18→11:52)
[2018-05-04 08:21] LABS: Basophils # (auto) 0.06 K/uL (0-0.2); Basophils % (auto) 0.7 %; Eosinophils # (auto) 0.28 K/uL (0-0.5); Eosinophils % (auto) 3.3 %; Hematocrit (blood only) 40.1 % (37-47); Hemoglobin 13.3 g/dL (12.0-16.0); Immature Granulocytes # (auto) 0.03 K/uL (0.00-0.02); Immature Granulocytes % (auto) 0.4 %; Lymphocytes # (auto) 2.65 K/uL (1.2-3.4); Lymphocytes % (auto) 31.5 %; Mean Corpuscular Volume 85.3 fL (80-100); Mean Platelet Volume 9.3 fL (7.4-10.4); Monocytes # (auto) 0.41 K/uL (0.11-0.59); Monocytes % (auto) 4.9 %; Neutrophils # (auto) 4.98 K/uL (1.4-6.5); Neutrophils % (auto) 59.2 %; Platelet Count 291 K/uL (130-400); RDW Standard Deviation 46.5 fL (36.4-46.3); White Blood Count 8.41 K/uL (4.8-10.8)
[2018-05-04 08:26] LABS: Mean Corpuscular Hgb Conc 33.2 g/dL (32-36)
[2018-05-04] MEDS ORDERED: LACTATED RINGER'S 1,000 ML IV SCH ×2 (08:30→12:45)
[2018-05-04 08:36] LABS: BUN Creatinine Ratio 12.7 (10-20); Calcium 8.5 mg/dl (8.5-10.1); Creatinine Clr Calc Pharmacy 90.5 ml/min; Est GFR (African American) 94.6; Est GFR (Non-African American) 81.6; Potassium 4.1 mmol/L (3.5-5.1)
[2018-05-04] MEDS ORDERED: PHENAZOPYRIDINE HCL 100 MG TAB PO SCH (08:45)
[2018-05-04] MEDS ORDERED: BUPIVACAINE 0.5 % 5 MG/1 ML MPF 30ML VIAL ONE (09:41)
--- NOTE | 2018-05-04 09:44 | History & Physical Bridge Note ---
Date of Service May 04, 2018 History & Physical Bridge Note I have examined the patient, reviewed the History & Physical and in the interval since the performance of the History & Physical I have noted the following changes of clinical significance: no changes noted
[2018-05-04] MEDS ORDERED: ALBUTEROL 0.083% NEBU SOLN 3 ML VIAL NEB STA (09:52)
[2018-05-04] MEDS ORDERED: GLYCOPYRROLATE 0.2 MG/ML VIAL ONE (11:52)
[2018-05-04] MEDS ORDERED: ROCURONIUM BROMIDE 10 MG/ML 5 ML VIAL ONE ×4 (11:52→15:55)
[2018-05-04] MEDS ORDERED: NEOSTIGMINE METHYLSULFATE 5 MG/5 ML SYR ONE (11:52)
[2018-05-04] MEDS ORDERED: METOCLOPRAMIDE HCL INJ 5 MG/ML 2 ML VIAL ONE (12:02)
[2018-05-04] MEDS ORDERED: TISSEEL FIBRIN SEALANT 4ML TOP ONE (12:10)
--- NOTE | 2018-05-04 12:30 | Post Operative Brief Note ---
Immediate Post Op Note v1 Date of Surgery May 04, 2018 Pre & Post Diagnosis Operation Date: 05/04/18 09:20 Pre-Op Diagnosis: Dysfunctional Uterine Bleeding Post-Op Diagnosis: Dysfunctional Uterine Bleeding Procedure Operation Date: 05/04/18 09:20 Actual Procedures p Robotic Assisted Total Laparoscopic Hysterectomy with Bilateral Salpingectomies, and Cystoscopy - Clark Blas MD Complications: None Surgeon Clark Blas Aeronautical Engineering Technologist None Estimated Blood Loss 20 Findings Consistent with Post-Op Diagnosis Drains Mathews Catheter
[2018-05-04] MEDS ORDERED: ONDANSETRON INJ 2 MG/ML 2 ML VIAL IV PRN ×2 (12:31→13:00)
[2018-05-04] MEDS ORDERED: PROMETHAZINE HCL 12.5 MG in SODIUM CHLORIDE 0.9% 50 ML IV PRN ×2 (12:31→13:00)
[2018-05-04] MEDS ORDERED: ACETAMINOPHEN 325 MG TAB PO PRN (12:31)
[2018-05-04] MEDS ORDERED: IBUPROFEN 600 MG TAB PO PRN (12:31)
[2018-05-04] MEDS ORDERED: OXYCODONE/ACETAMINOPHEN 5mg/325mg TAB PO PRN ×2 (12:31)
[2018-05-04] MEDS ORDERED: LABETALOL HCL IV 5 MG/ML 20ML IV PRN (13:00)
[2018-05-04] MEDS ORDERED: ATROPINE SULFATE 0.1 MG/ML 5ML SYR IV PRN (13:00)
[2018-05-04] MEDS ORDERED: NALOXONE HCL 0.4 MG/1 ML VIAL/CARP IV PRN (13:00)
[2018-05-04] MEDS ORDERED: ePHEDrine sulfate 50 MG/ML AMP IV PRN (13:00)
[2018-05-04] MEDS ORDERED: FLUMAZENIL 0.1 MG/1 ML 10 ML VIAL IV PRN (13:00)
[2018-05-04] MEDS ORDERED: HYDROmorphone INJ 1 MG/ML SYRINGE ONE (13:11)
[2018-05-04] MEDS: HYDROmorphone INJ 1 MG/ML SYRINGE IV PRN ×4 (13:14→13:30)
--- NOTE | 2018-05-04 14:14 | Anesthesiology Progress Note ---
Date of Service May 04, 2018 Anesthesia Post Procedure Vital Signs Vital Signs: Temp Pulse Pulse Resp BP Pulse Ox 05/04/18 13:40 36.8 C 75 15 117/91 95 05/04/18 13:30 70 14 124/86 95 05/04/18 13:20 73 18 147/89 H 95 05/04/18 13:10 70 16 140/86 100 05/04/18 13:00 71 16 135/89 100 05/04/18 12:50 36.8 C 76 16 142/94 H 100 05/04/18 10:12 78 18 94 05/04/18 08:10 36.6 C 86 16 126/79 96 Pain Intensity Abdomen: Pain Intensity: 4 Notes Mental Status: alert / awake / arousable Patient Amnestic to Procedure: Yes Nausea / Vomiting: adequately controlled Pain: adequately controlled Airway Patency, RR, SpO2: stable & adequate BP & HR: stable & adequate Hydration State: stable & adequate Anesthetic Complications: no major complications apparent
--- NOTE | 2018-05-04 14:42 | Operative Report ---
DATE OF OPERATION: 05/04/2018 PROCEDURES: Robotic-assisted total laparoscopic hysterectomy, bilateral salpingectomy and cystoscopy. SURGEON: Clark Blas MD ELECTRICIAN REFINERY: None. PREOPERATIVE DIAGNOSIS: Dysfunctional uterine bleeding. POSTOPERATIVE DIAGNOSES: 1. Dysfunctional uterine bleeding. 2. Likely adenomyosis. ESTIMATED BLOOD LOSS: 20 mL. DRAINS: Mathews. FLUIDS: Continuous lactated ringer. URINE OUTPUT: 300 mL via Mathews. COMPLICATIONS: None. CONDITION: Stable. FINDINGS: There was noted to be signs of adenomyotic uterus, otherwise normal-appearing fallopian tubes and ovaries, bowels were within normal limits. The liver edge and stomach were within normal limits. There was noted to be no apparent pathology appreciated. No significant adhesive diseases noted. On cystoscopy, there was noted to be bilateral ureteral jets and intact bladder. INDICATIONS: Ms. Mead is a 42-year-old with a long history of dysfunctional uterine bleeding in the form of menometrorrhagia. The patient has been experiencing periods every 17-25 days with approximately 8-11 days of very heavy bleeding, saturating numerous pads with frequent overflow bleeding. The patient was noted to be refractory to medical therapies including Depo-Provera and OCPs and had episodes of anemia as a result of her bleeding. In evaluation, the patient was offered Mirena IUD as well, other forms to control her bleeding. The patient declined and opted to proceed with a robotic-assisted total laparoscopic hysterectomy, bilateral salpingectomy with cystoscopy. Consents were reviewed and signed in clinic and postoperative instructions were described in detail. DESCRIPTION OF PROCEDURE: The patient was taken to the operating room after consents were assured. Upon presentation, she was properly identified. General endotracheal anesthesia was then obtained without difficulty. The patient was then placed in dorsal lithotomy position and was prepped and draped in the normal sterile fashion. A preprocedural timeout was performed. After the Mathews was then placed and a speculum was placed within the vagina and a VCare uterine manipulator was then placed without difficulty. Attention was turned to the laparoscopic portion of the case. An incision was made in the inferior aspect of the umbilicus to accommodate a 12 mm trocar. A Veress needle was in inserted through the incision and the abdomen was insufflated to 15 mmHg and there was noted to be a 5 mmHg opening pressure, tympany over the liver and symmetrical abdominal rise consistent with proper intra-abdominal insufflation. The 12 mm trocar was then introduced through these incisions under direct visualization and immediate inspection afterwards was noted to have atraumatic entry. 8 mm incisions and trocars were placed in the right and left lower quadrant and trocars were introduced atraumatically under direct visualization. The robot was then docked. Attention was then turned towards the left adnexa. The left fallopian tube was dissected off the mesosalpinx from the level of the ovary to the cornua. The left round ligament was then cauterized and dissected. A bladder flap was then created anteriorly starting from the left and proceeding towards the right. The uteroovarian was then grasped and serially cauterized, dissected, revealing the avascular broad ligament which was dissected down to the level of the uterine vessels on the left side. Attention was then turned to the right. The right tube was grasped and dissected off of the mesosalpinx to the level of the cornua. The right round ligament was grasped, cauterized and dissected revealing the avascular space of the broad ligament. The bladder flap was then continued anteriorly connecting with the right aspect of the uterus. The uteroovarian was then grasped, serially cauterized and the right ovary was dissected from the uterus. The right broad ligament was serially cauterized and dissected to the level of the right uterine vessels. The colpotomy was then initiated anteriorly revealing the uterine manipulator cup. The left uterine vessels were then serially cauterized, dissected, which was then repeated on the left to serially cauterizing the vessels and dissecting. The remainder of the colpotomy was continued circumferentially around the uterine manipulator freeing the cervix from the vagina. The uterus was then easily delivered vaginally. The attention was then turned to closure of the vaginal cuff which was closed with a V-Loc suture, continuous running stitch. There was noted to be airtight seal. After completion of the closure, inspection, the abdomen was then suction irrigated and no apparent bleeding was noted, although the right aspect of the left side wall was noted to be slightly oozy and Tisseel was placed over top of the raw edges. The decision was made to end the laparoscopic portion of the case. The robot was undocked. A cystoscopy was performed at which time there was noted to be bilateral ureteral jets and an intact bladder was noted. The cystoscopy was then discontinued, the abdomen was desufflated, trocars were removed and the fascia at the 12 mm incision was grasped with Allises, reapproximated with 0 Vicryl. The skin was reapproximated with 4-0 Monocryl with Dermabond placed on top. The 12 mL of lidocaine was distributed throughout 3 incisions. Needle, sponge and instrument counts were correct at the completion of the case. The patient was noted to be in stable condition upon being taken to the recovery room. I attest to the content of the Intraoperative Record and any orders documented therein. Any exception s are noted below.
[2018-05-04] MEDS ORDERED: KETOROLAC 30 MG/ML VIAL ONE (15:54)
--- NOTE | 2018-05-05 19:09 | Discharge Summary ---
PROCEDURES: Robotic assisted total laparoscopic hysterectomy, bilateral salpingectomy, and cystoscopy. SURGEON: Clark Blas MD. PROCEDURE COMPLICATIONS: None. HOSPITAL COURSE: Patient presented for a scheduled robotic-assisted total laparoscopic hysterectomy, which was performed without complication. The patient was admitted for observation for routine postoperative care until patient was meeting criteria for discharge. The patient had no complications during her observation stay and met criteria for postoperative discharge on the day of procedure. The patient was given detailed postoperative instructions both verbally and in written form and all questions answered to patient's satisfaction prior to discharge. Patient is scheduled to follow up in 2 weeks, discussed pathology, and a 6-week postoperative cuff check in 6 weeks.
== END 2018-05-04 17:35 | disposition home or self-care (01) ==
LOC: 4N 07:40 → ASU 07:40